=== PATIENT | female | born 1995 | race Caucasian/White ===

== ENCOUNTER 2024-11-19 10:01 | Outpatient (AMB) | payer BC, SELFPAY ==
--- NOTE | 2024-11-19 10:12 | AMB.OBINITIA ---
Vital Signs 11/19/24 10:22 Height 1.55 m Height Method Stated Weight 63.957 kg Weight Measurement Method Standing Scale BMI 26.6 BP 120/71 Blood Pressure Source Automatic Cuff Blood Pressure Location Right Upper Arm Position Sitting Respiration 16 Pulse 98 Pulse Source Monitor Temp 97.7 F Temp Source Oral Pulse Oximetry (%) 98 Oxygen Delivery Method Room Air Allergies/Home Meds Allergies & Medications Allergies No Known Allergies Allergy (Verified 11/19/24 10:12) Medication Reconciliation No Known Home Medications 11/19/24 [History Confirmed 11/19/24] Intake Visit Data Collection New Patient or Established: New Patient (never been to [facility]) Reason for Visit:: INITIAL CARE Seen by Clinical Staff ONLY (RN/MA): No Strategy Analyst Required: No Do You Feel Safe at Home: Yes Authorities Contacted: N/A PCP or OBGYN visit in last 3 months: Yes Hx Now: Yes Are you currently on any form of Control: No Last menstrual period: 09/10/24 Pain Present Currently: No Pain Scale Used: Carrion-Martin/Numerical Pain scale:: 0 Smoking Status Smoking Status: Never smoker Questionnaires Covid-19 Vaccine Questionnaire Has patient been vacinated for Covid-19 Have you been vacinated for Covid-19: Yes PHQ-9 PHQ-2 Over the last 2 weeks, how often have you been bothered by any of the following problems? 1. Little interest or pleasure in doing things: not at all 2. Feeling down, depressed, or hopeless: not at all Total score: 0 PHQ-9 3. Trouble falling or staying asleep, or sleeping too much: Not at all 4. Feeling tired or having little energy: Not at all 5. Poor appetite or overeating: Not at all 6. Feeling bad about yourself - or that you are a failure or have let yourself or your family down: Not at all 7. Trouble concentrating on things, such as reading the newspaper or watching television: Not at all 8. Moving or speaking so slowly that other people could have noticed? - Or the opposite - being so fidgety or restless that you have been moving around a lot more than usual: not at all 9. Thoughts that you would be better off or of hurting yourself in some way: Not at all Total score: 0 Source: Developed by Drs. Rosalino Kolb, Tosha Reyes, Alfredo Melo and colleagues, with an educational matthew from [employer] 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 Her last menstrual period was 09/10/2024 giving her a due date around OB Ultrasound Indication Indication: Size ,dates ,viability OB Ultrasound Ultrasound technique: transvaginal Gestational sac assessment: Presence, location, size, shape: Live IUP crown-rump length 3.15 cm corresponding to 10 weeks 0 days and an EDC of 06/19/2025. 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 She states she does have a problem with iron deficiency anemia. She is a vegetarian. OB Initial Visit Menstrual History Menstrual reliability: definite Flow: heavy Menstrual regularity: regular Monthly: Yes Age at menarche: 16 On control pills at conception: No Associated symptoms (LMP): Reports nausea, vomiting, fatigue and breast tenderness OB History : 1 Infection History & Risk Evaluation History of STDs: none Genetic Screening & History Genetic Screening/Teratology Counseling - Includes patient, baby's father, or anyone in either family with: 1. Patient's age 35 years or older as of estimated date of delivery: No 2. Thalassemia (Samoan, Botswanan, Mediterranean, or Background); MCV less than 80: No 3. Neural Tube Defect (Meningomyelocele, Spina Bifida, or Anencephaly): No 4. Congenital Heart Defect: No 5. Down Syndrome: No 6. Karlos-Sachs (Ashkenazi Baptism, Cajun, Korean [place]): No 7. Lisa Disease (Ashkenazi Baptism): No 8. Familial Dysautonomia (Ashkenazi Baptism): No 9. Sickle Cell Disease or Trait (): No 10. Hemophilia or other blood disorders: No 11. Muscular Dystrophy: No 12. Cystic Fibrosis: No 13. Baltazar's Chorea: No 14. Mental Retardation/Autism: No 15. Other inherited genetic or chromosomal disorder: No 16. Maternal Metabolic Disorder (EG,TYPE 1 Diabetes, PKU): No 17. Patient or baby's father had a child with defects not listed above: No 18. Recurrent loss or a stillbirth: No 19. Medications (including supplements, vitamins, herbs or otc drugs)/illicit/recreational drugs/alcohol since last menstrual period: No 20. Any other: No Infection History 1. Live with someone with TB or exposed to TB: No 2. Rash or viral illness since last menstrual period: No 3. Hepatitis B,C: No Other (see comments) Source: [employer] Review of Systems Review of Systems Narrative Review of Systems: Patient reports nausea some vomiting and breast tenderness. She reports fatigue. She does not want to take any medication for her nausea. Constitutional Constitutional: Reports fatigue Gastrointestinal Gastrointestinal: Reports nausea and Reports vomiting Endocrine Endocrine: Reports fatigue Exam General General Appearance: alert, in no apparent distress, comfortable, cooperative, healthy appearing and well groomed ENT ENT exam: Present other (Multiple piercings of nose and lip) Neck Neck exam: Present normal inspection, full ROM and trachea midline Chest Chest inspection: Present normal inspection and symmetric chest wall rise Resp Respiratory exam: Present normal lung sounds bilaterally Card Cardiovascular exam: Present regular rate, normal rhythm and normal heart sounds Abdominal Abdominal exam: Present soft and normal bowel sounds External exam: Present normal external exam Speculum exam: Present normal speculum exam Bimanual exam: Present normal bimanual exam and uterine enlargement (9 to 10 weeks size. Narrow pelvic outlet.) Extremities Extremities exam: Present normal inspection and full ROM Psych Psychiatric exam: Present normal affect and normal mood Skin Skin exam: Present warm, dry, intact and normal color Office Procedures OB Clinic LOC & Office Proc's Nursing/Assessment Patient Status: Initial/New Patient OB Clinic Nursing Assessment: Medication Reconciliation, Update PMH in EMR and Vital Signs OB Clinic Coordination of Care: Complex Care and Chronic Disease 1-5, Consent,records obtained, informed consent, Education Simp Pt/Fam, Lab and Imaging orders, Results/Orders obtained and Staff clarify orders Special Needs: Heart tones Miscellaneous Interventions: Pelvic/Pap Smear Set up New Patient Charge New Patient Point Assignment: 1154 New Patient Point Charge: IRONWORKER APPRENTICE SHOP Level 4 ([id number]) In Clinic Procedures Pap Smear: Yes Bedside Ultrasounds US Transvaginal at bedside: Yes Assessment & Plan Diagnosis / Problem List (1) : Status: Acute Qualifiers: Weeks of gestation: 10 weeks Qualified Code(s): Z3A.10 - 10 weeks gestation of Assessment and Plan: labs done and reviewed O+ /antibody screen negative/ rubella immune /RPR nonreactive /hepatitis B surface antigen negative/ hep C negative /HIV negative Patient desires NIPT. Urine culture not performed. Need GC chlamydia trichomoniasis as not performed. POWERHOUSE ATTENDANT: Papsmear Pap Smear Procedure [place]arone in room during procedure?: No Pre-op diagnosis general: Annual wellness exam Post-op diagnosis procedure note: Same Procedure Notes:: Pap with high risk HPV performed Papsmear completed: yes
[2024-11-19 10:22] VITALS: BP 120/71; PULSE 98; RESP 16; TEMP 36.5; O2SAT 98; BMI 26.6
== END 2024-11-19 10:54 | disposition home or self-care (01) ==
LOC: HODSOBC 10:01
PROVIDERS: PCP Family Medicine; Referring Provider Family Medicine; Supervising Provider Obstetrics & Gynecology; Visit Provider Obstetrics & Gynecology
DX: Z34.01 Encounter for supervision of normal first pregnancy, first trimester (principal); Z3A.10 10 weeks gestation of pregnancy
CPT/HCPCS: 76817; 99204; Q0091; G0463

== ENCOUNTER 2024-12-19 12:58 | Outpatient (AMB) | payer BC, SELFPAY ==
[2024-12-19 13:09] VITALS: BP 124/74; PULSE 69; RESP 17; TEMP 36.8; O2SAT 98; BMI 26.9
--- NOTE | 2024-12-19 13:09 | AMB.OBVISIT ---
Vital Signs 12/19/24 13:09 Height 1.55 m Height Method Measured Weight 64.58 kg Weight Measurement Method Standing Scale BMI 26.9 BP 124/74 Blood Pressure Source Automatic Cuff Blood Pressure Location Right Upper Arm Position Sitting Respiration 17 Pulse 69 Pulse Source Monitor Temp 98.2 F Temp Source Temporal Artery Scan Pulse Oximetry (%) 98 Oxygen Delivery Method Room Air Allergies/Home Meds Allergies & Medications Allergies No Known Allergies Allergy (Verified 12/19/24 13:10) Medication Reconciliation mv-mn no.97-folic 180 mcg-dha 25 mg-herb no.293 25 mg chewable tablet (Alive Daily Support ) tab PO 12/19/24 [History Confirmed 12/19/24] Intake Visit Data Collection New Patient or Established: Established Patient (seen at [facility] within 3 years) Reason for Visit:: OBC Seen by Clinical Staff ONLY (RN/MA): No Atomic Process Engineer Required: No Do You Feel Safe at Home: Yes Authorities Contacted: N/A PCP or OBGYN visit in last 3 months: Yes Hx Now: Yes Are you currently on any form of Control: No Last menstrual period: 11/19/24 Pain Present Currently: No Pain Scale Used: Carrion-Martin/Numerical Pain scale:: 0 Smoking Status Smoking Status: Never smoker Questionnaires Covid-19 Vaccine Questionnaire Has patient been vacinated for Covid-19 Have you been vacinated for Covid-19: Yes PHQ-9 PHQ-2 Over the last 2 weeks, how often have you been bothered by any of the following problems? 1. Little interest or pleasure in doing things: not at all 2. Feeling down, depressed, or hopeless: not at all Total score: 0 PHQ-9 3. Trouble falling or staying asleep, or sleeping too much: Not at all 4. Feeling tired or having little energy: Not at all 5. Poor appetite or overeating: Not at all 6. Feeling bad about yourself - or that you are a failure or have let yourself or your family down: Not at all 7. Trouble concentrating on things, such as reading the newspaper or watching television: Not at all 8. Moving or speaking so slowly that other people could have noticed? - Or the opposite - being so fidgety or restless that you have been moving around a lot more than usual: not at all 9. Thoughts that you would be better off or of hurting yourself in some way: Not at all Total score: 0 If you checked off any problems, how difficult have these problems made it for you to do your work, take care of things at home, or get along with other people?: not difficult at all Source: Developed by Drs. Rosalino Kolb, Tosha Reyes, Alfredo Mleo and colleagues, with an educational matthew from [employer]. 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
== END 2024-12-19 14:03 | disposition home or self-care (01) ==
LOC: HODSOBC 12:58
PROVIDERS: Supervising Provider Obstetrics & Gynecology; Visit Provider Obstetrics & Gynecology
DX: Z34.92 Encounter for supervision of normal pregnancy, unspecified, second trimester (principal); Z3A.14 14 weeks gestation of pregnancy
CPT/HCPCS: 99213; G0463

== ENCOUNTER 2025-01-21 13:04 | Outpatient (AMB) | payer BC, SELFPAY ==
--- NOTE | 2025-01-21 13:05 | OBCLNT_ITS ---
Vital Signs 01/21/25 13:08 Height 1.55 m Height Method Stated Weight 68.152 kg Weight Measurement Method Standing Scale BMI 28.3 BP 119/77 Blood Pressure Source Automatic Cuff Blood Pressure Location Left Upper Arm Position Sitting Respiration 16 Pulse 77 Pulse Source Monitor Temp 98.2 F Temp Source Oral Pulse Oximetry (%) 98 Oxygen Delivery Method Room Air Allergies/Home Meds Allergies & Medications Allergies No Known Allergies Allergy (Verified 01/21/25 13:09) Medication Reconciliation mv-mn no.97-folic 180 mcg-dha 25 mg-herb no.293 25 mg chewable tablet (Alive Daily Support ) tab PO 12/19/24 [History Confirmed 01/21/25] Intake Visit Data Collection New Patient or Established: Established Patient (seen at [facility] within 3 years) Reason for Visit:: CARE Seen by Clinical Staff ONLY (RN/MA): No Hide Or Skin Buffer Required: No Do You Feel Safe at Home: Yes Authorities Contacted: N/A PCP or OBGYN visit in last 3 months: Yes Hx Now: Yes Are you currently on any form of Control: No Pain Present Currently: No Pain Scale Used: Carrion-Martin/Numerical Smoking Status Smoking Status: Never smoker Questionnaires Covid-19 Vaccine Questionnaire Has patient been vacinated for Covid-19 Have you been vacinated for Covid-19: Yes PHQ-9 PHQ-2 Over the last 2 weeks, how often have you been bothered by any of the following problems? 1. Little interest or pleasure in doing things: not at all 2. Feeling down, depressed, or hopeless: not at all Total score: 0 PHQ-9 3. Trouble falling or staying asleep, or sleeping too much: Not at all 4. Feeling tired or having little energy: Not at all 5. Poor appetite or overeating: Not at all 6. Feeling bad about yourself - or that you are a failure or have let yourself or your family down: Not at all 7. Trouble concentrating on things, such as reading the newspaper or watching television: Not at all 8. Moving or speaking so slowly that other people could have noticed? - Or the opposite - being so fidgety or restless that you have been moving around a lot more than usual: not at all 9. Thoughts that you would be better off or of hurting yourself in some way: Not at all Total score: 0 Source: Developed by Drs. Rosalino Kolb, Tosha Reyes, Alfredo Melo and colleagues, with an educational matthew from [employer]. 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 Labs reviewed 01/21/25 -?-?-?-?-?-?-?-?-?-?-?-?- 19w 0d 68.152 kg 119/77 19 127 active Starting to feel flutters. No VB or LOF Asking about wha t I could write as far as restrictions go at work. 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/11/23 EDC 06/17/25 PNC labs: O+/Ab -/RI/RPR NR/ HIV-/HepBSag-/Hep C-/HgBA1C 4.8/ HgB 12.9/Hct 38.2 Pap WNL Need urine GC/Chlam Need SS from [facility] [place] Office Procedures OB Clinic LOC & Office Proc's Nursing/Assessment Patient Status: Established Patient OB Clinic Nursing Assessment: Medication Reconciliation, Update PMH in EMR and Vital Signs OB Clinic Coordination of Care: Complex Care and Chronic Disease 1-5, Consent,records obtained, informed consent, Education Simp Pt/Fam, 1 Ins Authorization, Lab and Imaging orders, Results/Orders obtained and Staff clarify orders Special Needs: Heart tones Established Patient Charge Established Patient Point Assignment: 150 Established Patient Point Charge: EP Level 4 (120-155)
[2025-01-21 13:08] VITALS: BP 119/77; PULSE 77; RESP 16; TEMP 36.8; O2SAT 98; BMI 28.3
== END 2025-01-21 13:43 | disposition home or self-care (01) ==
LOC: HODSOBC 13:04
PROVIDERS: PCP Obstetrics & Gynecology; Referring Provider Obstetrics & Gynecology; Supervising Provider Obstetrics & Gynecology; Visit Provider Obstetrics & Gynecology
DX: Z34.02 Encounter for supervision of normal first pregnancy, second trimester (principal); Z3A.19 19 weeks gestation of pregnancy
CPT/HCPCS: 99214; G0463

== ENCOUNTER 2025-02-24 11:39 | Outpatient (AMB) | payer BC, SELFPAY ==
--- NOTE | 2025-02-24 11:51 | OBCLNT_ITS ---
Vital Signs 02/24/25 11:52 Height 1.55 m Height Method Stated Weight 70.42 kg Weight Measurement Method Standing Scale BMI 29.2 BP 121/76 Blood Pressure Source Automatic Cuff Blood Pressure Location Left Upper Arm Position Sitting Respiration 16 Pulse 97 Pulse Source Monitor Temp 97.2 F Temp Source Oral Pulse Oximetry (%) 98 Oxygen Delivery Method Room Air Allergies/Home Meds Allergies & Medications Allergies No Known Allergies Allergy (Verified 02/24/25 11:52) Medication Reconciliation mv-mn no.97-folic 180 mcg-dha 25 mg-herb no.293 25 mg chewable tablet (Alive Daily Support ) tab PO 12/19/24 [History Confirmed 02/24/25] Intake Visit Data Collection New Patient or Established: Established Patient (seen at [facility] within 3 years) Reason for Visit:: OBC Seen by Clinical Staff ONLY (RN/MA): No Legal Service Specialist Required: No Do You Feel Safe at Home: Yes Authorities Contacted: N/A PCP or OBGYN visit in last 3 months: Yes Date of Last PCP or OBGYN visit: 01/21/25 Hx Now: Yes Are you currently on any form of Control: No Pain Present Currently: No Pain Scale Used: Carrion-Martin/Numerical Pain scale:: 0 Smoking Status Smoking Status: Never smoker Questionnaires Covid-19 Vaccine Questionnaire Has patient been vacinated for Covid-19 Have you been vacinated for Covid-19: Yes PHQ-9 PHQ-2 Over the last 2 weeks, how often have you been bothered by any of the following problems? 1. Little interest or pleasure in doing things: not at all 2. Feeling down, depressed, or hopeless: not at all Total score: 0 PHQ-9 3. Trouble falling or staying asleep, or sleeping too much: Not at all 4. Feeling tired or having little energy: Not at all 5. Poor appetite or overeating: Not at all 6. Feeling bad about yourself - or that you are a failure or have let yourself or your family down: Not at all 7. Trouble concentrating on things, such as reading the newspaper or watching television: Not at all 8. Moving or speaking so slowly that other people could have noticed? - Or the opposite - being so fidgety or restless that you have been moving around a lot more than usual: not at all 9. Thoughts that you would be better off or of hurting yourself in some way: Not at all Total score: 0 If you checked off any problems, how difficult have these problems made it for you to do your work, take care of things at home, or get along with other people?: not difficult at all Source: Developed by Drs. Rosalino Kolb, Tosha Reyes, Alfredo Melo and colleagues, with an educational matthew from [employer]. 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 Labs reviewed 01/21/25 -?-?-?-?-?-?-?-?-?-?-?-?- 19w 0d 68.152 kg 119/77 19 127 active Starting to feel flutters. No VB or LOF Asking about wha t I could write as far as restrictions go at work. 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 02/24/25 -?-?-?-?-?-?-?-?-?-?-?-?- 23w 6d 70.42 kg 121/76 26 136 active +FM. No UCs o r VB Had SS at [facility]. No report available yet. 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 09/11/23 EDC 06/17/25 PNC labs: O+/Ab -/RI/RPR NR/ HIV-/HepBSag-/Hep C-/HgBA1C 4.8/ HgB 12.9/Hct 38.2 Pap WNL Need urine GC/Chlam Need SS from [facility] [place] Notes Visit Date: 02/24/25 Last Updated by: Becky Mike (OB Clinic), MD [facility] Reviewed 23 5/7 weeks 606 gm Normal anatomy marginal cord insertion EDC 06/12/25 done Office Procedures OB Clinic LOC & Office Proc's Nursing/Assessment Patient Status: Established Patient OB Clinic Nursing Assessment: Medication Reconciliation, Update PMH in EMR and Vital Signs OB Clinic Coordination of Care: Education Complex Pt/Fam, Consent,records obtained, informed consent and Staff clarify orders Special Needs: Heart tones Established Patient Charge Established Patient Point Assignment: 95 Established Patient Point Charge: EP Level 3 (80-115) Assessment & Plan Diagnosis / Problem List (1) : Status: Acute Qualifiers: Weeks of gestation: 23 weeks Qualified Code(s): Z3A.23 - 23 weeks gestation of
[2025-02-24 11:52] VITALS: BP 121/76; PULSE 97; RESP 16; TEMP 36.2; O2SAT 98; BMI 29.2
== END 2025-02-24 12:07 | disposition home or self-care (01) ==
LOC: HODSOBC 11:39
PROVIDERS: Supervising Provider Obstetrics & Gynecology; Visit Provider Obstetrics & Gynecology
DX: Z34.92 Encounter for supervision of normal pregnancy, unspecified, second trimester (principal); Z3A.23 23 weeks gestation of pregnancy
CPT/HCPCS: 99213; G0463

== ENCOUNTER 2025-04-01 10:32 | Outpatient (AMB) | payer BC, SELFPAY ==
[2025-04-01 10:40] VITALS: BP 113/73; PULSE 77; RESP 16; TEMP 36.6; O2SAT 97; BMI 30.4
--- NOTE | 2025-04-01 10:40 | OBCLNT_ITS ---
Vital Signs 04/01/25 10:40 Height 1.55 m Height Method Stated Weight 73.198 kg Weight Measurement Method Standing Scale BMI 30.4 BP 113/73 Blood Pressure Source Automatic Cuff Blood Pressure Location Left Upper Arm Position Sitting Respiration 16 Pulse 77 Pulse Source Monitor Temp 97.8 F Temp Source Oral Pulse Oximetry (%) 97 Oxygen Delivery Method Room Air Allergies/Home Meds Allergies & Medications Allergies No Known Allergies Allergy (Verified 04/01/25 10:45) Medication Reconciliation mv-mn no.97-folic 180 mcg-dha 25 mg-herb no.293 25 mg chewable tablet (Alive Daily Support ) tab PO 12/19/24 [History Confirmed 04/01/25] Intake Visit Data Collection New Patient or Established: Established Patient (seen at [facility] within 3 years) Reason for Visit:: CARE Seen by Clinical Staff ONLY (RN/MA): No 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 1. Little interest or pleasure in doing things: not at all 2. Feeling down, depressed, or hopeless: not at all Total score: 0 PHQ-9 3. Trouble falling or staying asleep, or sleeping too much: Not at all 4. Feeling tired or having little energy: Not at all 5. Poor appetite or overeating: Not at all 6. Feeling bad about yourself - or that you are a failure or have let yourself or your family down: Not at all 7. Trouble concentrating on things, such as reading the newspaper or watching television: Not at all 8. Moving or speaking so slowly that other people could have noticed? - Or the opposite - being so fidgety or restless that you have been moving around a lot more than usual: not at all 9. Thoughts that you would be better off or of hurting yourself in some w ay: Not at all Source: Developed by Drs. Rosalino Kolb, Tosha Reyes, Alfredo Melo and colleagues, with an educational matthew from [employer]. 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 Her is in IT Tobacco History Smoking Status: Never smoker Second Hand Smoke Exposure: No Alcohol History Alcohol Intake: Never Domestic Abuse History Do You Feel Safe at Home: Yes Care OB Visit Log OB Flowsheet Initial Weight: Not Recorded Date -?-?-?-?-?-?-?-?-?-?-?-?- EGA Weight BP Alb Glu CTX Pres Fundal ht FHR Mov Dilation Station Effacement Hx Notes Visit Note 12/19/24 -?-?-?-?-?-?-?-?-?-?-?-?- 14w 2d 64.58 kg 124/74 14 143 No FM or VB. Labs reviewed 01/21/25 -?-?-?-?-?-?-?-?-?-?-?-?- 19w 0d 68.152 kg 119/77 19 127 active Starting to feel flutters. No VB or LOF Asking about wha t I could write as far as restrictions go at work. 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 02/24/25 -?-?-?-?-?-?-?-?-?-?-?-?- 23w 6d 70.42 kg 121/76 26 136 active +FM. No UCs o r VB Had SS at [facility]. No report available yet. Signed a release Had SS at [facility] 04/01/25 -?-?-?-?-?-?-?-?-?-?-?-?- 29w 0d 73.198 kg 113/73 29 156 active +FM No UCs N o VB + Back pain, leg numbness GCT ordered RAMBO Calculator Estimated Delivery Date Method Current WG Current Estimate 06/17/25 Ultrasound #1 29w 0d Other Estimates 06/17/25 LMP (Certain) 29w 0d Expected Delivery Route/Plan 29 y/o G1Po Anticipate Specific Issue/Plans 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[employer] LMP 09/11/23 EDC 06/17/25 PN labs: O+/Ab -/RI/RPR NR/ HIV-/HepBSag-/Hep C-/HgBA1C 4.8/ HgB 12.9/Hct 38.2 Pap WNL Need urine GC/Chlam Need SS from [facility] [place] Notes Visit Date: 04/01/25 Last Updated by: Becky Mike ([facility])MD Note For light duty given Visit Date: 02/24/25 Last Updated by: Becky Mike ([facility])MD SS [facility] Reviewed 23 5/ weeks 606 gm Normal anatomy marginal cord insertion EDC 06/12/25 done Office Procedures OBC Clinic LOC & Office Proc's Nursing/Assessment Patient Status: Established Patient OB Clinic Nursing Assessment: Medication Reconciliation, Update PMH in EMR and Vital Signs OB Clinic Coordination of Care: Complex Care and Chronic Disease 1-5, Consent,records obtained, informed consent, Education Simp Pt/Fam, Lab and Imaging orders, Results/Orders obtained and Staff clarify orders Special Needs: Heart tones Established Patient Charge Established Patient Point Assignment: 135 Established Patient Point Charge: EP Level 4 (120-155) Assessment & Plan Diagnosis / Problem List (1) : Status: Acute Qualifiers: Weeks of gestation: 29 weeks Qualified Code(s): Z3A.29 - 29 weeks gestation of
== END 2025-04-01 11:36 | disposition home or self-care (01) ==
LOC: HODSOBC 10:32
PROVIDERS: Supervising Provider Obstetrics & Gynecology; Visit Provider Obstetrics & Gynecology
DX: O09.893 Supervision of other high risk pregnancies, third trimester (principal); O99.891 Other specified diseases and conditions complicating pregnancy; M54.9 Dorsalgia, unspecified; R20.0 Anesthesia of skin; Z3A.29 29 weeks gestation of pregnancy
CPT/HCPCS: 99214; G0463

== ENCOUNTER 2025-04-24 10:36 | Outpatient (AMB) | payer BC, SELFPAY ==
[2025-04-24 10:40] VITALS: BP 118/74; PULSE 86; RESP 16; TEMP 36.4; O2SAT 98; BMI 31.4
--- NOTE | 2025-04-24 10:40 | AMB.OBVISIT ---
Vital Signs 04/24/25 10:40 Height 1.55 m Height Method Stated Weight 75.466 kg Weight Measurement Method Standing Scale BMI 31.4 BP 118/74 Blood Pressure Source Automatic Cuff Blood Pressure Location Left Upper Arm Position Sitting Respiration 16 Pulse 86 Pulse Source Monitor Temp 97.5 F Temp Source Oral Pulse Oximetry (%) 98 Oxygen Delivery Method Room Air Allergies/Home Meds Allergies & Medications Allergies No Known Allergies Allergy (Verified 04/24/25 10:47) Medication Reconciliation mv-mn no.97-folic 180 mcg-dha 25 mg-herb no.293 25 mg chewable tablet (Alive Daily Support ) tab PO 12/19/24 [History Confirmed 04/24/25] Intake Visit Data Collection New Patient or Established: Established Patient (seen at [facility] within 3 years) Reason for Visit:: CARE Seen by Clinical Staff ONLY (RN/MA): No Stock Associate Required: No Do You Feel Safe at Home: Yes Authorities Contacted: N/A PCP or OBGYN visit in last 3 months: Yes Hx Now: Yes Are you currently on any form of Control: No Pain Present Currently: No Pain Scale Used: Carrion-Martin/Numerical Smoking Status Smoking Status: Never smoker Immunizations Flu Vaccine in the Last 12 Months: Yes Flu Vaccine Exclusion Criteria: Already Received Questionnaires Covid-19 Vaccine Questionnaire Has patient been vacinated for Covid-19 Have you been vacinated for Covid-19: Yes PHQ-9 PHQ-2 Over the last 2 weeks, how often have you been bothered by any of the following problems? 1. Little interest or pleasure in doing things: not at all 2. Feeling down, depressed, or hopeless: not at all Total score: 0 PHQ-9 3. Trouble falling or staying asleep, or sleeping too much: Not at all 4. Feeling tired or having little energy: Not at all 5. Poor appetite or overeating: Not at all 6. Feeling bad about yourself - or that you are a failure or have let yourself or your family down: Not at all 7. Trouble concentrating on things, such as reading the newspaper or watching television: Not at all 8. Moving or speaking so slowly that other people could have noticed? - Or the opposite - being so fidgety or restless that you have been moving around a lot more than usual: not at all 9. Thoughts that you would be better off or of hurting yourself in some way: Not at all Total score: 0 Source: Developed by Drs. Rosalino Kolb, Tosha Reyes, Alfredo Melo and colleagues, with an educational matthew from [employer]. 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 Labs reviewed 01/21/25 <del>?</del> 19w 0d 68.152 kg 119/77 19 127 active Starting to feel flutters. No VB or LOF Asking about what I could write as far as restrictions go at work. 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 02/24/25 <del>?</del> 23w 6d 70.42 kg 121/76 26 136 active +FM. No UCs or VB Had SS at [facility]. No report available yet. Signed a release Had SS at [facility] 04/01/25 <del>?</del> 29w 0d 73.198 kg 113/73 29 156 active +FM No UCs No VB + Back pain, leg numbness GCT ordered 04/24/25 <del>?</del> 32w 2d 75.466 kg 118/74 32 145 active Anembryonic : - Ultrasound performed on 04-23-2025 demonstrates an intrauterine sac measuring 1.8 centimeters corresponding to 6 weeks and 5 days gestation with no pole, no cardiac activity, and no yolk sac identified. - The appears to have stopped developing 2-3 weeks prior. 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 - The etiology is generally chromosomal in nature. Plan: - Dilation and curettage (D&C) procedure as patient's preferred management option. - Submit stat request for D&C approval today. - Anticipate approval notification by Sunday with procedure scheduling for Sunday or Sunday. - Collect tissue during procedure for chromosomal analysis to provide potential genetic information. - Patient instructed to present to emergency department if bleeding or other concerning symptoms develop. - Office staff will contact patient once procedure approval is obtained to schedule date. - Restart iron supplements for borderline anemia (hemoglobin 11.3, hematocrit 33.1) - Take iron with vitamin C to improve absorption; avoid milk products or tea with iron - Consider gummy iron supplements for better absorption - Recheck hemoglobin around 37 weeks; if not above 12, consider IV iron - Break up meals into smaller portions for heartburn management - Avoid nipple stimulation before 37 weeks - After 37 weeks, nipple stimulation encouraged and can start collecting with collection kit - Follow-up in 2 weeks, then weekly after 36 weeks - Membrane sweeping at 39 weeks to encourage natural labor - Induction scheduled at 41 weeks and 1-2 days if spontaneous labor does not occur RAMBO Calculator Estimated Delivery Date Method Current WG Current Estimate 06/17/25 Ultrasound #1 32w 2d Other Estimates 06/17/25 LMP (Certain) 32w 2d Expected Delivery Route/Plan 29 y/o G1Po Anticipate Specific Issue/Plans 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[employer] 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 09/11/23 EDC 06/17/25 PNC labs: O+/Ab -/RI/RPR NR/ HIV-/HepBSag-/Hep C-/HgBA1C 4.8/ HgB 12.9/Hct 38.2 Pap WNL Need urine GC/Chlam Need [facility] from [facility] [place] Notes Visit Date: 04/24/25 Last Updated by: Braden Douglas MD Laboratory, Imaging, and Diagnostic Test Results - records (dates not specified): - Blood group: O-positive - Antibodies: K-negative - Rubella: immune - Alpha: nonreactive - HIV: negative - Hepatitis B: negative - Hepatitis C: negative - Hemoglobin A1c: 4.8 - Hemoglobin: 12.9 g/dL - Hematocrit: 38.2 - Date: 04/01/2025 - Hemoglobin: 11.3 g/dL (borderline anemic) - Hematocrit: 33.1 - One-hour glucose: 124 (negative for diabetes) - RPR: negative Visit Date: 04/01/25 Last Updated by: Becky Mike ([facility])MD Note For light duty given Visit Date: 02/24/25 Last Updated by: Becky Mike ([facility])MD [facility] Reviewed 23 10/29 weeks 606 gm Normal anatomy marginal cord insertion EDC 06/12/25 done Office Procedures OBC Clinic LOC & Office Proc's Nursing/Assessment Patient Status: Established Patient OB Clinic Nursing Assessment: Medication Reconciliation, Update PMH in EMR and Vital Signs OB Clinic Coordination of Care: Complex Care and Chronic Disease 1-5, Consent,records obtained, informed consent, Education Simp Pt/Fam, 1 Ins Authorization, Lab and Imaging orders, Results/Orders obtained and Staff clarify orders Special Needs: Heart tones Established Patient Charge Established Patient Point Assignment: 150 Established Patient Point Charge: EP Level 4 (120-155) Assessment & Plan Diagnosis / Problem List (1) 32 weeks gestation of : Status: Acute Plan Problem List - at 32 weeks and 2 days gestation - Iron deficiency anemia - Pulsatile tinnitus - Heartburn Assessment 32-week and 2-day 1 para 0 with borderline anemia (hemoglobin 11.3, hematocrit 33.1) requiring iron supplementation restart. Patient reports new onset pulsating sensation in left ear without associated cold symptoms, congestion, or allergies. heart rate is normal at 127 bpm. Patient experiences heartburn symptoms consistent with gestational changes. One-hour glucose screening negative at 124, RPR negative, and other routine laboratory values within normal limits. Plan - Restart iron supplements for borderline anemia (hemoglobin 11.3, hematocrit 33.1) - Take iron with vitamin C to improve absorption; avoid milk products or tea with iron - Consider gummy iron supplements for better absorption - Recheck hemoglobin around 37 weeks; if not above 12, consider IV iron - Break up meals into smaller portions for heartburn management - Avoid nipple stimulation before 37 weeks - After 37 weeks, nipple stimulation encouraged and can start collecting with collection kit - Follow-up in 2 weeks, then weekly after 36 weeks - Membrane sweeping at 39 weeks to encourage natural labor - Induction scheduled at 41 weeks and 1-2 days if spontaneous labor does not occur 1. Progress Reviewed gestational age (32 weeks 2 days), growth, and heart rate (127 bpm, normal). Planned frequent visits (every 2 weeks until 36 weeks, then weekly). 2. Instructed patient to monitor movements and report decreases immediately. 3. Testing Counseled on routine third-trimester labs per guidelines (syphilis screening completed with negative RPR). Discussed potential need for ultrasound or monitoring based on risk factors. 4. Preeclampsia Precaution Educated on preeclampsia signs: severe headache, vision changes, right upper quadrant pain, sudden swelling. Advised urgent reporting of symptoms and discussed blood pressure monitoring if high risk. 5. Labor Precautions Reviewed labor signs: regular contractions, pelvic pressure, back pain, bleeding, or fluid leakage. Instructed to seek immediate care for these symptoms. 6. Lifestyle and Delivery Preparation Reinforced vitamins, nutrition (restart iron supplements, take with vitamin C, avoid milk/tea with iron), and safe activity. Discussed plan, pain management, and (nipple stimulation after 37 weeks, breast milk collection). Advised on labor preparation (hospital bag) and expectations. 7. Psychosocial Support Assessed emotional well-being and offered resources for mental health or parenting support.
== END 2025-04-24 12:00 | disposition home or self-care (01) ==
PROVIDERS: Supervising Provider Obstetrics & Gynecology; Visit Provider Obstetrics & Gynecology
DX: O09.893 Supervision of other high risk pregnancies, third trimester (principal); O99.013 Anemia complicating pregnancy, third trimester; D50.9 Iron deficiency anemia, unspecified; O99.891 Other specified diseases and conditions complicating pregnancy; R12 Heartburn; H93.A9 Pulsatile tinnitus, unspecified ear; Z3A.32 32 weeks gestation of pregnancy
CPT/HCPCS: 99214; G0463

== ENCOUNTER 2025-05-08 14:32 | Outpatient (AMB) | payer BC, SELFPAY ==
[2025-05-08 14:37] VITALS: BP 125/78; PULSE 76; RESP 14; TEMP 36.6; O2SAT 98; BMI 31.4
--- NOTE | 2025-05-08 14:37 | AMB.OBVISIT ---
Vital Signs 05/08/25 14:37 Height 1.55 m Height Method Stated Weight 75.353 kg Weight Measurement Method Standing Scale BMI 31.4 BP 125/78 Blood Pressure Source Automatic Cuff Blood Pressure Location Left Upper Arm Position Sitting Respiration 14 Pulse 76 Pulse Source Monitor Temp 97.8 F Temp Source Oral Pulse Oximetry (%) 98 Oxygen Delivery Method Room Air Allergies/Home Meds Allergies & Medications Allergies No Known Allergies Allergy (Verified 05/08/25 14:38) Medication Reconciliation mv-mn no.97-folic 180 mcg-dha 25 mg-herb no.293 25 mg chewable tablet (Alive Daily Support ) tab PO 12/19/24 [History Confirmed 05/08/25] Intake Visit Data Collection New Patient or Established: Established Patient (seen at [facility] within 3 years) Reason for Visit:: CARE/ PATIENT REQUESTING TDAP Seen by Clinical Staff ONLY (RN/MA): No 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 Required: No Do You Feel Safe at Home: Yes Authorities Contacted: N/A PCP or OBGYN visit in last 3 months: Yes Hx Now: Yes Are you currently on any form of Control: No Pain Present Currently: No Pain Scale Used: Carrion-Martin/Numerical Pain scale:: 0 Smoking Status Smoking Status: Never smoker Immunizations Flu Vaccine in the Last 12 Months: Yes Flu Vaccine Exclusion Criteria: Already Received Questionnaires Covid-19 Vaccine Questionnaire Has patient been vacinated for Covid-19 Have you been vacinated for Covid-19: Yes PHQ-9 PHQ-2 Over the last 2 weeks, how often have you been bothered by any of the following problems? 1. Little interest or pleasure in doing things: not at all 2. Feeling down, depressed, or hopeless: not at all Total score: 0 PHQ-9 3. Trouble falling or staying asleep, or sleeping too much: Not at all 4. Feeling tired or having little energy: Not at all 5. Poor appetite or overeating: Not at all 6. Feeling bad about yourself - or that you are a failure or have let yourself or your family down: Not at all 7. Trouble concentrating on things, such as reading the newspaper or watching television: Not at all 8. Moving or speaking so slowly that other people could have noticed? - Or the opposite - being so fidgety or restless that you have been moving around a lot more than usual: not at all 9. Thoughts that you would be better off or of hurting yourself in some way: Not at all Total score: 0 Source: Developed by Drs. Rosalino Kolb, Tosha Reyes, Alfredo Melo and colleagues, with an educational matthew from N-1-1. 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 Labs reviewed 01/21/25 <del>?</del> 19w 0d 68.152 kg 119/77 19 127 active Starting to feel flutters. No VB or LOF Asking about what I could write as far as restrictions go at work. 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 02/24/25 <del>?</del> 23w 6d 70.42 kg 121/76 26 136 active +FM. No UCs or VB Had SS at [facility]. No report available yet. Signed a release Had SS at [facility] 04/01/25 <del>?</del> 29w 0d 73.198 kg 113/73 29 156 active +FM No UCs No VB + Back pain, leg numbness GCT ordered 04/24/25 <del>?</del> 32w 2d 75.466 kg 118/74 32 145 active Anembryonic : - Ultrasound performed on 04-23-2025 demonstrates an intrauterine sac measuring 1.8 centimeters corresponding to 6 weeks and 5 days gestation with no pole, no cardiac activity, and no yolk sac identified. - The appears to have stopped developing 2-3 weeks prior. 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 - The etiology is generally chromosomal in nature. Plan: - Dilation and curettage (D&C) procedure as patient's preferred management option. - Submit stat request for D&C approval today. - Anticipate approval notification by Sunday with procedure scheduling for Sunday or Sunday. - Collect tissue during procedure for chromosomal analysis to provide potential genetic information. - Patient instructed to present to emergency department if bleeding or other concerning symptoms develop. - Office staff will contact patient once procedure approval is obtained to schedule date. - Restart iron supplements for borderline anemia (hemoglobin 11.3, hematocrit 33.1) - Take iron with vitamin C to improve absorption; avoid milk products or tea with iron - Consider gummy iron supplements for better absorption - Recheck hemoglobin around 37 weeks; if not above 12, consider IV iron - Break up meals into smaller portions for heartburn management - Avoid nipple stimulation before 37 weeks - After 37 weeks, nipple stimulation encouraged and can start collecting with collection kit - Follow-up in 2 weeks, then weekly after 36 weeks - Membrane sweeping at 39 weeks to encourage natural labor - Induction scheduled at 41 weeks and 1-2 days if spontaneous labor does not occur 05/08/25 <del>?</del> 34w 2d 75.353 kg 125/78 absent cephalic 34 155 active - She reports experiencing occasional tightening of her abdomen that she believes may be contractions, but notes these are not constant or frequent. - She acknowledges uncertainty about recognizing contractions as this is her first . - She denies regular contractions or other concerning symptoms. - She has already received her flu shot and is scheduled to receive Tdap vaccination today. - She attempted to obtain RSV vaccination at her clinic and [facility] but was told she could not get it. 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[employer] [employer] LMP 09/11/23 EDC 06/17/25 [facility] labs: O+/Ab -/RI/RPR NR/ HIV-/HepBSag-/Hep C-/HgBA1C 4.8/ HgB 12.9/Hct 38.2 Pap WNL Need urine GC/Chlam Need [facility] from [facility] [place] Notes Visit Date: 04/24/25 Last Updated by: Braden Douglas MD Laboratory, Imaging, and Diagnostic Test Results - records (dates not specified): - Blood group: O-positive - Antibodies: K-negative - Rubella: immune - Alpha: nonreactive - HIV: negative - Hepatitis B: negative - Hepatitis C: negative - Hemoglobin A1c: 4.8 - Hemoglobin: 12.9 g/dL - Hematocrit: 38.2 - Date: 04/01/2025 - Hemoglobin: 11.3 g/dL (borderline anemic) - Hematocrit: 33.1 - One-hour glucose: 124 (negative for diabetes) - RPR: negative Visit Date: 04/01/25 Last Updated by: Becky Mike (OB Clinic)MD Note For light duty given Visit Date: 02/24/25 Last Updated by: Becky Mike (OB Clinic)MD [facility] Reviewed 23 5/7 weeks 606 gm Normal anatomy marginal cord insertion EDC 06/12/25 done Office Procedures OBC Clinic LOC & Office Proc's Nursing/Assessment Patient Status: Established Patient OB Clinic Nursing Assessment: Medication Reconciliation, Update PMH in EMR and Vital Signs OB Clinic Coordination of Care: Complex Care and Chronic Disease 1-5, Consent,records obtained, informed consent, Education Simp Pt/Fam, 1 Ins Authorization, Lab and Imaging orders, Results/Orders obtained and Staff clarify orders Special Needs: Heart tones Established Patient Charge Established Patient Point Assignment: 150 Established Patient Point Charge: EP Level 4 (120-155) Injection/Vaccine Admin SQ Im Injection: Yes Immunizations diphth,pertus(acell),tetanus 2.5 Lf unit-8 mcg-5 Lf/0.5mL IM syringe Performing Provider: Braden Douglas MD Performing Location: [facility] Administered by: Rochelle Sanchez MA on 05/08/25 14:42 Dose Route Admin Location Dispensed Lot Number Expiration Date Package [facility] [employer] 0.5 mL IM Left Deltoid 0.5 mL [id number] 12/05/27 29879-733-52 [id number] [employer] VIS Given Date VIS Provided VIS Publication Date 05/08/25 Single Vaccine 24 Eligibility Eligibility Date Funding Source Public Non-[facility] Assessment & Plan Diagnosis / Problem List (1) 34 weeks gestation of : Status: Acute Plan Problem List - at 34 weeks and 2 days gestation - [place] contractions Assessment 34-week 2-day intrauterine with normal heart rate of 127-130 bpm. Patient reports occasional uterine tightening consistent with [place] contractions, occurring infrequently and not in a regular pattern. Normal physiologic changes noted with uterine positioning as progresses to 34-35 weeks with forward tipping of uterus out of true pelvis. Patient is primigravida and uncertain about distinguishing true contractions from [place] contractions. Plan - Administer Tdap vaccination today - Group B strep culture to be performed at next appointment (at 36+ weeks) - Follow up in 2 weeks - RSV vaccination recommended between 32-37 weeks (can obtain at pharmacy) - Return to hospital if concerning symptoms develop per previously discussed precautions 1. Progress Reviewed gestational age (34 weeks 2 days), growth, and heart rate (127-130 bpm, normal). Planned frequent visits (every 2 weeks until 36 weeks, then weekly). 2. Instructed patient to monitor movements and report decreases immediately. 3. Testing Counseled on routine third-trimester labs per guidelines (Group B strep culture planned for next visit at 36+ weeks). Discussed potential need for ultrasound or monitoring based on risk factors. 4. Preeclampsia Precaution Educated on preeclampsia signs: severe headache, vision changes, right upper quadrant pain, sudden swelling. Advised urgent reporting of symptoms and discussed blood pressure monitoring if high risk. 5. Labor Precautions Reviewed labor signs: regular contractions (every 5 minutes or closer), pelvic pressure, back pain, bleeding, or fluid leakage. Explained [place] contractions as normal preparation for labor. Contractions should not be more frequent than every 5 minutes and should not last beyond 30-40 minutes. Instructed to seek immediate care for these symptoms. 6. Lifestyle and Delivery Preparation Reinforced vitamins, nutrition, and safe activity. Discussed plan, pain management, and . Advised on labor preparation (e.g., hospital bag) and expectations. 7. Psychosocial Support Assessed emotional well-being and offered resources for mental health or parenting support.
== END 2025-05-08 14:46 | disposition home or self-care (01) ==
LOC: HODSOBC 14:32
PROVIDERS: Supervising Provider Obstetrics & Gynecology; Visit Provider Obstetrics & Gynecology
DX: O09.893 Supervision of other high risk pregnancies, third trimester (principal); O47.03 False labor before 37 completed weeks of gestation, third trimester; Z3A.34 34 weeks gestation of pregnancy; Z23 Encounter for immunization
CPT/HCPCS: 90471; 90715; 96372; 99214; G0463

== ENCOUNTER 2025-05-20 11:33 | Outpatient (AMB) | payer BC, SELFPAY ==
[2025-05-20 11:42] VITALS: BP 102/78; PULSE 85; RESP 18; TEMP 36.2; O2SAT 98; BMI 31.5
--- NOTE | 2025-05-20 11:42 | OBCLNT_ITS ---
Vital Signs 05/20/25 11:42 Height 1.55 m Height Method Stated Weight 75.807 kg Weight Measurement Method Standing Scale BMI 31.5 BP 102/78 Blood Pressure Source Automatic Cuff Blood Pressure Location Left Upper Arm Position Sitting Respiration 18 Pulse 85 Pulse Source Monitor Temp 97.2 F Temp Source Oral Pulse Oximetry (%) 98 Oxygen Delivery Method Room Air Allergies/Home Meds Allergies & Medications Allergies No Known Allergies Allergy (Verified 05/20/25 11:47) Medication Reconciliation mv-mn no.97-folic 180 mcg-dha 25 mg-herb no.293 25 mg chewable tablet (Alive Daily Support ) tab PO 12/19/24 [History Confirmed 05/20/25] Immunizations Immunizations Flu Vaccine in the Last 12 Months: No Flu Vaccine Exclusion Criteria: No Exclusion Criteria Care OB Visit Log OB Flowsheet Initial Weight: Not Recorded Date -?-?-?-?-?-?-?-?-?-?-?-?- EGA Weight BP Alb Glu CTX Pres Fundal ht FHR Mov Dilation Station Effacement Hx Notes Visit Note 12/19/24 -?-?-?-?-?-?-?-?-?-?-?-?- 14w 2d 64.58 kg 124/74 14 143 No FM or VB. Labs reviewed 01/21/25 -?--?-?-?-?-?-?-?-?-?-?-?- 19w 0d 68.152 kg 119/77 19 127 active Starting to feel flutters. No VB or LOF Asking about wha t I could write as far as restrictions go at work. 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 02/24/25 -?-?-?-?-?-?-?-?-?-?-?-?- 23w 6d 70.42 kg 121/76 26 136 active +FM. No UCs o r VB Had SS at [facility]. No report available yet. Signed a release Had SS at [facility] 04/01/25 -?-?-?-?-?-?-?-?-?-?-?-?- 29w 0d 73.198 kg 113/73 29 156 active +FM No UCs N o VB + Back pain, leg numbness GCT ordered 04/24/25 -?-?-?-?-?-?-?-?-?-?-?-?- 32w 2d 75.466 kg 118/74 32 145 active Anembryonic : - Ultrasound performed on 04-23-2025 dem onstrates an intrauterine sac measuring 1.8 centimeters corresponding to 6 weeks and 5 days gestation with no pole, no cardiac activity, and no yolk sac identified. - The appears to have stopped developing 2-3 weeks prior. - Patient reports no bleeding, which dif fers from her previous miscarriages where bleeding occurred before diagnosis. - The etiology is generally chromosomal in nature. Plan: - Dilation and curettage (D&C) procedure as patient's preferred management option. - Submit stat request for D&C approval t apolonia. - Anticipate approval notification by Mo javi with procedure scheduling for Sunday or Sunday. - Collect tissue during procedure for ch romosomal analysis to provide potential genetic information. - Patient instructed to present to emerg ency department if bleeding or other concerning symptoms develop. - Office staff will contact patient once procedure approval is obtained to schedule date. - Restart iron s upplements for borderline anemia (hemoglobin 11.3, hematocrit 33.1) - Take iron with vitamin C to improve ab sorption; avoid milk products or tea with iron - Consider gummy iron supplements for be tter absorption - Recheck hemoglobin around 37 weeks; if not above 12, consider IV iron - Break up meals into smaller portions f or heartburn management - Avoid nipple stimulation before 37 wee ks - After 37 weeks, nipple stimulation enc ouraged and can start collecting with collection kit - Follow-up in 2 weeks, then weekly afte r 36 weeks - Membrane sweeping at 39 weeks to encou rage natural labor - Induction scheduled at 41 weeks and 1- 2 days if spontaneous labor does not occur 05/08/25 -?-?-?-?-?-?-?-?-?-?-?-?- 34w 2d 75.353 kg 125/78 absent cephalic 34 155 active - She reports experiencing occasional tightening of her abdomen that she believes may be contractions, but notes these are not constant or frequent. - She acknowledges uncertainty about r ecognizing contractions as this is her first . - She denies regular contractions or oth er concerning symptoms. - She has already received her flu shot and is scheduled to receive Tdap vaccination today. - She attempted to obtain RSV vaccinatio n at her clinic and [facility] but was told she could not get it. - Administ er Tdap vaccination today - Group B strep culture to be performed at next appointment (at 36+ weeks) - Follow up in 2 weeks - RSV vaccination recommended between 32 -37 weeks (can obtain at pharmacy) - Return to hospital if concerning sympt oms develop per previously discussed precautions 05/20/25 -?-?-?-?-?-?-?-?-?-?-?-?- 36w 0d 75.807 kg 102/78 absent cephalic 36 145 active - She reports feeling good overall with no current concerns. - She denies contractions, leaking, or b leeding. - She reports good movement. - She is currently working but has day off, working tomorrow, Sunday, and Sunday. - Group B Strep culture performed today at 36 weeks - Return visit scheduled for next week ( 37 weeks) - At 39 weeks, cervical exam and membran e sweeping will be performed - Weight measurement to be obtained at n ext visit for weight estimation - Weekly visits to continue, with possib le transition to every 2 weeks for one visit then back to weekly - Patient to be sent to labor and delive after next office visit - Unemployment and family bonding forms to be completed by Sunday RAMBO Calculator Estimated Delivery Date Method Current WG Current Estimate 06/17/25 Ultrasound #1 36w 2d Other Estimates 06/17/25 LMP (Certain) 36w 2d Expected Delivery Route/Plan 29 y/o G1Po Anticipate Specific Issue/Plans 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/23 EDC 06/17/25 [facility] labs: O+/Ab -/RI/RPR NR/ HIV-/HepBSag-/Hep C-/HgBA1C 4.8/ HgB 12.9/Hct 38.2 Pap WNL Need urine GC/Chlam Need SS from [facility] [place] Notes Visit Date: 04/24/25 Last Updated by: Braden Douglas MD Laboratory, Imaging, and Diagnostic Test Results - records (dates not specified): - Blood group: O-positive - Antibodies: K-negative - Rubella: immune - Alpha: nonreactive - HIV: negative - Hepatitis B: negative - Hepatitis C: negative - Hemoglobin A1c: 4.8 - Hemoglobin: 12.9 g/dL - Hematocrit: 38.2 - Date: 04/01/2025 - Hemoglobin: 11.3 g/dL (borderline anemic) - Hematocrit: 33.1 - One-hour glucose: 124 (negative for diabetes) - RPR: negative Visit Date: 04/01/25 Last Updated by: Becky Mike (OB Clinic)MD Note For light duty given Visit Date: 02/24/25 Last Updated by: Becky Mike (OB Clinic)MD [facility] Reviewed 23 10/29 weeks 606 gm Normal anatomy marginal cord insertion EDC 06/12/25 done Office Procedures OBC Clinic LOC & Office Proc's Nursing/Assessment Patient Status: Established Patient OB Clinic Nursing Assessment: Medication Reconciliation, Update PMH in EMR and Vital Signs OB Clinic Coordination of Care: Consent,records obtained, informed consent, Ed ucation Simp Pt/Fam, Lab and Imaging orders, Results/Orders obtained and Staff clarify orders Special Needs: Heart tones Established Patient Charge Established Patient Point Assignment: 110 Established Patient Point Charge: EP Level 3 (80-115) Assessment & Plan Diagnosis / Problem List (1) Supervision of high risk , unspecified, third trimester: Status: Acute Plan Problem List - at 36 weeks gestation Assessment 36-week patient () with estimated due date of 06/17, presenting for routine visit. heart rate documented at 158 bpm. Patient reports no contractions, no leaking, no bleeding, and good movement. Group B Strep culture was performed during this visit. Previous genetic testing showed technical failure due to insufficient DNA yield despite adequate sample quality (>10% yield). Plan - Group B Strep culture performed today at 36 weeks - Return visit scheduled for next week (37 weeks) - At 39 weeks, cervical exam and membrane sweeping will be performed - Weight measurement to be obtained at next visit for weight estimation - Weekly visits to continue, with possible transition to every 2 weeks for one visit then back to weekly - Patient to be sent to labor and delivery after next office visit - Unemployment and family bonding forms to be completed by Sunday. Progress Reviewed gestational age (36 weeks 0 days), growth, and heart rate (158 bpm). Planned frequent visits (weekly from current gestational age). 2. Instructed patient to monitor movements and report decreases immediately. 3. Testing Group B Strep culture performed at 36 weeks per guidelines. Discussed potential need for ultrasound or monitoring based on risk factors. 4. Preeclampsia Precaution Educated on preeclampsia signs: severe headache, vision changes, right upper quadrant pain, sudden swelling. Advised urgent reporting of symptoms and discussed blood pressure monitoring if high risk. 5. Labor Precautions Reviewed labor signs: regular contractions, pelvic pressure, back pain, bleeding, or fluid leakage. Instructed to seek immediate care for these symptoms. 6. Lifestyle and Delivery Preparation Reinforced vitamins, nutrition, and safe activity. Discussed membrane sweeping at 39 weeks to help initiate labor naturally and expectations. 7. Psychosocial Support Assessed emotional well-being and offered resources for mental health or parenting support.
== END 2025-05-20 11:53 | disposition home or self-care (01) ==
LOC: HODSOBC 11:33
PROVIDERS: Supervising Provider Obstetrics & Gynecology; Visit Provider Obstetrics & Gynecology
DX: O09.93 Supervision of high risk pregnancy, unspecified, third trimester (principal); Z3A.36 36 weeks gestation of pregnancy; Z36.85 Encounter for antenatal screening for Streptococcus B
CPT/HCPCS: 99213; G0463

== ENCOUNTER 2025-06-05 09:34 | Outpatient (AMB) | payer BC, SELFPAY ==
[2025-06-05 09:40] VITALS: BP 138/84; PULSE 61; RESP 18; TEMP 36.4; O2SAT 98; BMI 32.0
--- NOTE | 2025-06-05 09:40 | AMB.OBPNC ---
Vital Signs 06/05/25 09:40 Height 1.55 m Height Method Stated Weight 76.884 kg Weight Measurement Method Standing Scale BMI 32.0 BP 138/84 H Blood Pressure Source Automatic Cuff Blood Pressure Location Left Upper Arm Position Sitting Respiration 18 Pulse 61 Pulse Source Monitor Temp 97.6 F Temp Source Temporal Artery Scan Pulse Oximetry (%) 98 Oxygen Delivery Method Room Air Allergies/Home Meds Allergies & Medications Allergies No Known Allergies Allergy (Verified 06/05/25 11:17) Medication Reconciliation mv-mn no.97-folic 180 mcg-dha 25 mg-herb no.293 25 mg chewable tablet (Alive Daily Support ) 1 tab PO QDAY 12/19/24 [History Confirmed 06/05/25] ferrous sulfate 325 mg (65 mg iron) tablet (Feosol) 325 mg PO QDAY 06/05/25 [History Confirmed 06/05/25] vit T54-AK-wynsvggwfj-BM no.15 500 mcg-400 mcg-10 mg-400 mg capsule 1 cap PO QDAY 06/05/25 [History Confirmed 06/05/25] Immunizations Immunizations Flu Vaccine in the Last 12 Months: No Flu Vaccine Exclusion Criteria: No Exclusion Criteria Care OB Visit Log OB Flowsheet Initial Weight: Not Recorded Date <del>?</del> EGA Weight BP Alb Glu CTX Pres Fundal ht FHR Mov Dilation Station Effacement Hx Notes Visit Note 12/19/24 <del>?</del> 14w 2d 64.58 kg 124/74 14 143 No FM or VB. Labs reviewed 01/21/25 <del>?</del> 19w 0d 68.152 kg 119/77 19 127 active Starting to feel flutters. No VB or LOF Asking about what I could write as far as restrictions go at work. 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 02/24/25 <del>?</del> 23w 6d 70.42 kg 121/76 26 136 active +FM. No UCs or VB Had SS at [facility]. No report available yet. Signed a release Had SS at [facility] 04/01/25 <del>?</del> 29w 0d 73.198 kg 113/73 29 156 active +FM No UCs No VB + Back pain, leg numbness GCT ordered 04/24/25 <del>?</del> 32w 2d 75.466 kg 118/74 32 145 active Anembryonic : - Ultrasound performed on 04-23-2025 demonstrates an intrauterine sac measuring 1.8 centimeters corresponding to 6 weeks and 5 days gestation with no pole, no cardiac activity, and no yolk sac identified. - The appears to have stopped developing 2-3 weeks prior. 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 - The etiology is generally chromosomal in nature. Plan: - Dilation and curettage (D&C) procedure as patient's preferred management option. - Submit stat request for D&C approval today. - Anticipate approval notification by Sunday with procedure scheduling for Sunday or Sunday. - Collect tissue during procedure for chromosomal analysis to provide potential genetic information. - Patient instructed to present to emergency department if bleeding or other concerning symptoms develop. - Office staff will contact patient once procedure approval is obtained to schedule date. - Restart iron supplements for borderline anemia (hemoglobin 11.3, hematocrit 33.1) - Take iron with vitamin C to improve absorption; avoid milk products or tea with iron - Consider gummy iron supplements for better absorption - Recheck hemoglobin around 37 weeks; if not above 12, consider IV iron - Break up meals into smaller portions for heartburn management - Avoid nipple stimulation before 37 weeks - After 37 weeks, nipple stimulation encouraged and can start collecting with collection kit - Follow-up in 2 weeks, then weekly after 36 weeks - Membrane sweeping at 39 weeks to encourage natural labor - Induction scheduled at 41 weeks and 1-2 days if spontaneous labor does not occur 05/08/25 <del>?</del> 34w 2d 75.353 kg 125/78 absent cephalic 34 155 active - She reports experiencing occasional tightening of her abdomen that she believes may be contractions, but notes these are not constant or frequent. - She acknowledges uncertainty about recognizing contractions as this is her first . - She denies regular contractions or other concerning symptoms. - She has already received her flu shot and is scheduled to receive Tdap vaccination today. - She attempted to obtain [facility] vaccination at her clinic and [facility] but was told she could not get it. - Administer Tdap vaccination today - Group B strep culture to be performed at next appointment (at 36+ weeks) - Follow up in 2 weeks - RSV vaccination recommended between 32-37 weeks (can obtain at pharmacy) - Return to hospital if concerning symptoms develop per previously discussed precautions 05/20/25 <del>?</del> 36w 0d 75.807 kg 102/78 absent cephalic 36 145 active - She reports feeling good overall with no current concerns. - She denies contractions, leaking, or bleeding. - She reports good movement. - She is currently working but has Sunday off, working tomorrow, Sunday, and Sunday. - Group B Strep culture performed today at 36 weeks - Return visit scheduled for next week (37 weeks) - At 39 weeks, cervical exam and membrane sweeping will be performed - Weight measurement to be obtained at next visit for weight estimation - Weekly visits to continue, with possible transition to every 2 weeks for one visit then back to weekly - Patient to be sent to labor and delivery after next office visit - Unemployment and family bonding forms to be completed by Sunday06/05/25 <del>?</del> 38w 2d 76.884 kg 138/84 absent cephalic 39 146 active - She reports intermittent contractions that are off and on. - Contractions do not last more than 20-30 minutes. - Contractions resolve when she lies down and switches positions. - Denies persistent contractions. - She reports new-onset elevated blood pressures as noted by staff. - Send patient to hospital for NST and complete OB evaluation due to heart rate deceleration observed in office (dropped from 145 to 100 bpm then recovered) - Obtain PIH panel due to new-onset elevated blood pressures - Repeat GBS culture (previous specimen was inadequate/spoiled) - Perform membrane sweep - Monitor blood pressure multiple times during hospital visit - Follow up in one week RAMBO Calculator Estimated Delivery Date Method Current WG Current Estimate 06/17/25 Ultrasound #1 38w 2d Other Estimates 06/17/25 LMP (Certain) 38w 2d Expected Delivery Route/Plan 29 y/o G1Po Anticipate Specific Issue/Plans 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/23 EDC 06/17/25 PNC labs: O+/Ab -/RI/RPR NR/ HIV-/HepBSag-/Hep C-/HgBA1C 4.8/ HgB 12.9/Hct 38.2 Pap WNL Need urine GC/Chlam Need SS from [facility] [place] Notes Visit Date: 04/24/25 Last Updated by: Braden Douglas MD Laboratory, Imaging, and Diagnostic Test Results - records (dates not specified): - Blood group: O-positive - Antibodies: K-negative - Rubella: immune - Alpha: nonreactive - HIV: negative - Hepatitis B: negative - Hepatitis C: negative - Hemoglobin A1c: 4.8 - Hemoglobin: 12.9 g/dL - Hematocrit: 38.2 - Date: 04/01/2025 - Hemoglobin: 11.3 g/dL (borderline anemic) - Hematocrit: 33.1 - One-hour glucose: 124 (negative for diabetes) - RPR: negative Visit Date: 04/01/25 Last Updated by: Becky Mike (OB Clinic)MD Note For light duty given Visit Date: 02/24/25 Last Updated by: Becky Mike (OB Clinic)MD [facility] Reviewed 23 5/7 weeks 606 gm Normal anatomy marginal cord insertion EDC 06/12/25 done Office Procedures OBC Clinic LOC & Office Proc's Nursing/Assessment Patient Status: Established Patient OB Clinic Nursing Assessment: Medication Reconciliation, Update PMH in EMR and Vital Signs OB Clinic Coordination of Care: Complex Care and Chronic Disease 1-5, Education Complex Pt/Fam, Consent,records obtained, informed consent, Lab and Imaging orders, Results/Orders obtained and Staff clarify orders Special Needs: Heart tones Established Patient Charge Established Patient Point Assignment: 140 Established Patient Point Charge: EP Level 4 (120-155) Assessment & Plan Diagnosis / Problem List (1) Supervision of high risk , unspecified, third trimester: Status: Acute Plan Problem List - Elevated blood pressure in - heart rate abnormality Assessment 40-year-old at 38 weeks 2 days gestation presenting with new-onset elevated blood pressures and heart rate deceleration noted during office visit (heart rate dropped from 145 to 100 bpm then recovered). Patient reports intermittent contractions lasting 20-30 minutes that resolve with position changes. Recent laboratory results show hemoglobin of 12.0 (non-anemic). GBS culture requires repeat testing due to inadequate specimen from previous collection. Plan - Send patient to hospital for NST and complete OB evaluation due to heart rate deceleration observed in office (dropped from 145 to 100 bpm then recovered) - Obtain PIH panel due to new-onset elevated blood pressures - Repeat GBS culture (previous specimen was inadequate/spoiled) - Perform membrane sweep - Monitor blood pressure multiple times during hospital visit - Follow up in one week 1. Progress Reviewed gestational age (38 weeks 2 days), growth, and heart rate (146 bpm normal, with concerning deceleration to 100 bpm noted during examination). Planned frequent visits (weekly at this gestational age). 2. Instructed patient to monitor movements and report decreases immediately. 3. Testing Counseled on routine third-trimester labs per guidelines. Hemoglobin 12.0 (non-anemic). GBS culture needs to be repeated due to inadequate specimen. Discussed potential need for ultrasound or monitoring based on risk factors. NST and complete OB ultrasound ordered due to heart rate deceleration. 4. Preeclampsia Precaution Educated on preeclampsia signs: severe headache, vision changes, right upper quadrant pain, sudden swelling. Advised urgent reporting of symptoms and discussed blood pressure monitoring. New-onset elevated blood pressures noted, PIH panel ordered. 5. Labor Precautions Reviewed labor signs: regular contractions, pelvic pressure, back pain, bleeding, or fluid leakage. Patient reports intermittent contractions lasting 20-30 minutes that resolve with position changes. Instructed to seek immediate care for persistent or worsening symptoms. 6. Lifestyle and Delivery Preparation Reinforced vitamins, nutrition, and safe activity. Discussed plan, pain management, and . Advised on labor preparation (keep hospital bag ready and partner available for transport) and expectations. Membrane sweep performed. 7. Psychosocial Support Assessed emotional well-being and offered resources for mental health or parenting support.
== END 2025-06-05 10:01 | disposition home or self-care (01) ==
LOC: HODSOBC 09:34
PROVIDERS: Supervising Provider Obstetrics & Gynecology; Visit Provider Obstetrics & Gynecology
DX: O09.893 Supervision of other high risk pregnancies, third trimester (principal); O36.8330 Maternal care for abnormalities of the fetal heart rate or rhythm, third trimester, not applicable or unspecified; O99.891 Other specified diseases and conditions complicating pregnancy; R03.0 Elevated blood-pressure reading, without diagnosis of hypertension; Z3A.38 38 weeks gestation of pregnancy; Z36.85 Encounter for antenatal screening for Streptococcus B
CPT/HCPCS: 99214; G0463

== ENCOUNTER 2025-06-05 10:28 | Observation (INO) | payer BC, SELFPAY ==
[2025-06-05] VITALS (8 sets, daily range): BP systolic 103–127; BP diastolic 55–76; PULSE 60–77; RESP 16–99; TEMP 36.5; BMI 32.0
--- NOTE | 2025-06-05 10:25 | XR_ITS ---
Examination: Complete OB ultrasound greater than 14 weeks Date and time of exam: 06/05/2025 at 11:14 a.m. CLINICAL HISTORY: Patient had hypertension and the physician's office today Findings: Viable intrauterine single fetus with single amniotic sac There is a single intrauterine fetus currently in cephalic presentation occiput posterior. The placenta is situated along the anterior wall of the uterus, placental grade is 3. heart rate is normal at 141 bpm. All of the usual anatomy which is identifiable are well seen and normal. There is a normal three-vessel umbilical cord.. Composite estimated gestational age based on BPD, head circumference, abdominal circumference, femur length is 37 weeks 1 day. Estimated weight is 3442 g the amniotic fluid volume index is 7.4 cm which is normal. Survey of intracranial anatomy, spinal anatomy, abdominal anatomy, four-chamber heart performed with no abnormalities identified. The ovaries could not be visualized due to overlying bowel Impression: 1. There is a normal viable single intrauterine fetus noted currently in cephalic position occiput posterior 2. Average gestational age is 37 weeks and 1 day, estimated weight 3442 g. 3. Estimated date of delivery is June 25, 2019.
[2025-06-05 11:17] LABS: Basophils # (Auto) 0.0 Thou/mm3 (0.0-0.2); Basophils % (Auto) 0 % (0-2.5); Eosinophils # (Auto) 0.1 Thou/mm3 (0.0-0.5); Eosinophils % (Auto) 1 % (0-10); Hematocrit 35.5 % (36.0-46.0); Hemoglobin 12.0 g/dL (12.0-16.0); Immature Granulocytes Auto 0.03 Thou/mm3 (0.00-0.00); Lymphocytes # (Auto) 2.0 Thou/mm3 (1.0-4.8); Lymphocytes % (Auto) 26 % (10-50); Mean Corpuscular HGB Conc 33.8 g/dl (31.0-37.0); Mean Corpuscular Hemoglobin 29.8 pg (25.0-35.0); Mean Corpuscular Volume 88 fL (80-100); Monocytes # (Auto) 0.7 Thou/mm3 (0.0-0.8); Monocytes % (Auto) 9 % (0-12); Neutrophils # (Auto) 4.9 Thou/mm3 (1.8-7.7); Neutrophils % (Auto) 64 % (37-80); Nucleated Red Blood Cell # 0.00 Thou/mm3 (0.00-0.00); Nucleated Red Blood Cell % 0 /100 WBC (0); Platelet Count 240 Thou/mm3 (140-440); RDW Standard Deviation 43.4 fL (36.4-46.3); Red Blood Count 4.03 Miln/mm3 (4.00-5.20); White Blood Count 7.8 Thou/mm3 (3.6-11.0)
[2025-06-05 11:30] LABS: Collection Type, Urine Clean Catch; Squamous Epithelial Cell,Urine 0 /hpf (0-5)
[2025-06-05 11:34] LABS: Fibrinogen 383 mg/dL (175-375); INR 1.0 (0.9-1.3); Partial Thromboplastin Time 25.3 Seconds (22.0-36.0); Prothrombin Time 10.2 Seconds (9.0-12.2)
[2025-06-05 11:40] LABS: Alanine Aminotransferase < 7 U/L (10-49); Albumin, Serum 3.7 gm/dL (3.5-5.0); Albumin/Globulin Ratio 1.6 (1.2-2.2); Alkaline Phosphatase 178 U/L (46-116); Anion Gap 11 (7-16); Aspartate Amino Transferase 12 U/L (0-34); BUN/Creatinine Ratio 10 Ratio (12-20); Bilirubin,Total 0.4 mg/dL (0.3-1.2); Blood Urea Nitrogen < 5 mg/dL (9-23); Calcium 9.4 mg/dL (8.3-10.6); Calcium (Corrected) 9.6 mg/dL (8.5-10.1); Carbon Dioxide 20.6 mMol/L (20.0-31.0); Chloride 109 mMol/L (98-107); Creatinine (Component) 0.5 mg/dL (0.6-1.3); Estimated Creatinine Clearance 157.2 mL/min (>60); Globulin 2.3 gm/dL (2.3-3.5); Glucose 79 mg/dL (74-106); LDH (Lactate Dehydrogenase) 160 U/L (120-246); Osmolality,Calculated 277 (275-295); Potassium 3.4 mMol/L (3.4-5.1); Sodium 141 mMol/L (136-145); Total Protein 6.0 gm/dL (5.7-8.2); Uric Acid 4.0 mg/dL (3.1-7.8); eGFR > 60 See Note
[2025-06-05 11:51] LABS: Bacteria,Urine 3+; Bilirubin,Urine Negative (Negative); Blood,Urine Trace (Negative); Clarity,Urine Clear (Clear/Hazy); Color,Urine Colorless (Lt Yel-Yel); Glucose, Urine Negative (Negative); Ketones,Urine Negative (Negative); Leukocyte Esterase,Urine Positive (Negative); Nitrite,Urine Negative (Negative); PH,Urine 7.5 (5.0-7.0); Protein,Urine Negative (Neg - Trace); RBC,Urine 4 /hpf (0-3); Specific Gravity,Urine 1.005 (1.001-1.035); Urobilinogen,Urine Negative mg/dL (0.0-1.0); WBC,Urine 22 /hpf (0-5)
[2025-06-05 13:08] LABS: Creatinine,Random Urine 26 mg/dL (30-125); Protein Total, Random Urine 9 mg/dL (1-14)
== END 2025-06-05 12:51 | disposition home or self-care (01) ==
PROVIDERS: Admitting Provider Obstetrics & Gynecology; Visit Provider Obstetrics & Gynecology
DX: O36.8330 Maternal care for abnormalities of the fetal heart rate or rhythm, third trimester, not applicable or unspecified (principal); Z3A.37 37 weeks gestation of pregnancy
CPT/HCPCS: 36415; 59025; 59899; 76805; 80053; 81001; 82570; 83615; 84156; 84550; 85025; 85384; 85610; 85730

== ENCOUNTER 2025-06-10 08:37 | Outpatient (AMB) | payer BC, SELFPAY ==
[2025-06-10 08:50] VITALS: BP 160/98; PULSE 73; RESP 14; TEMP 36.5; O2SAT 98; BMI 32.3
--- NOTE | 2025-06-10 08:50 | OBCLNT_ITS ---
Vital Signs 06/10/25 08:50 Height 1.55 m Height Method Stated Weight 77.791 kg Weight Measurement Method Standing Scale BMI 32.3 BP 160/98 H Blood Pressure Source Automatic Cuff Blood Pressure Location Left Upper Arm Position Sitting Respiration 14 Pulse 73 Pulse Source Monitor Temp 97.7 F Temp Source Oral Pulse Oximetry (%) 98 Oxygen Delivery Method Room Air Allergies/Home Meds Allergies & Medications Allergies No Known Allergies Allergy (Verified 06/10/25 09:51) Medication Reconciliation mv-mn no.97-folic 180 mcg-dha 25 mg-herb no.293 25 mg chewable tablet (Alive Daily Support ) 1 tab PO QDAY 12/19/24 [History Confirmed 06/10/25] ferrous sulfate 325 mg (65 mg iron) tablet (Feosol) 325 mg PO QDAY 06/05/25 [History Confirmed 06/10/25] vit L13-AP-mouynzbjpc-XN no.15 500 mcg-400 mcg-10 mg-400 mg capsule 1 cap PO QDAY 06/05/25 [History Confirmed 06/10/25] docusate sodium 100 mg capsule (Stool Softener) 100 mg PO QDAY 30 days #30 caps 06/13/25 [Rx] Immunizations Immunizations Flu Vaccine in the Last 12 Months: Yes Flu Vaccine Exclusion Criteria: Already Received Care OB Visit Log OB Flowsheet Initial Weight: Not Recorded Date -?-?-?-?-?-?-?-?-?-?-?-?- EGA Weight BP Alb Glu CTX Pres Fundal ht FHR Mov Dilation Station Effacement Hx Notes Visit Note 12/19/24 -?-?-?-?-?-?-?-?-?-?-?-?- 14w 2d 64.58 kg 124/74 14 143 No FM or VB. Labs reviewed 01/21/25 -?-?-?-?-?-?-?-?-?-?-?-?- 19w 0d 68.152 kg 119/77 19 127 active Starting to feel flutters. No VB or LOF Asking about wha t I could write as far as restrictions go at work. 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 02/24/25 -?-?-?-?-?-?-?-?-?-?-?-?- 23w 6d 70.42 kg 121/76 26 136 active +FM. No UCs o r VB Had SS at [facility]. No report available yet. Signed a release Had SS at [facility] 04/01/25 -?-?-?-?-?-?-?-?-?-?-?-?- 29w 0d 73.198 kg 113/73 29 156 active +FM No UCs N o VB + Back pain, leg numbness GCT ordered 04/24/25 -?-?-?-?-?-?-?-?-?-?-?-?- 32w 2d 75.466 kg 118/74 32 145 active Anembryonic : - Ultrasound performed on 04-23-2025 dem onstrates an intrauterine sac measuring 1.8 centimeters corresponding to 6 weeks and 5 days gestation with no pole, no cardiac activity, and no yolk sac identified. - The appears to have stopped developing 2-3 weeks prior. - Patient reports no bleeding, which dif fers from her previous miscarriages where bleeding occurred before diagnosis. - The etiology is generally chromosomal in nature. Plan: - Dilation and curettage (D&C) procedure as patient's preferred management option. - Submit stat request for D&C approval t apolonia. - Anticipate approval notification by Mo nday with procedure scheduling for Sunday or Sunday. - Collect tissue during procedure for ch romosomal analysis to provide potential genetic information. - Patient instructed to present to emerg ency department if bleeding or other concerning symptoms develop. - Office staff will contact patient once procedure approval is obtained to schedule date. - Restart iron s upplements for borderline anemia (hemoglobin 11.3, hematocrit 33.1) - Take iron with vitamin C to improve ab sorption; avoid milk products or tea with iron - Consider gummy iron supplements for be tter absorption - Recheck hemoglobin around 37 weeks; if not above 12, consider IV iron - Break up meals into smaller portions f or heartburn management - Avoid nipple stimulation before 37 wee ks - After 37 weeks, nipple stimulation enc ouraged and can start collecting with collection kit - Follow-up in 2 weeks, then weekly afte r 36 weeks - Membrane sweeping at 39 weeks to encou rage natural labor - Induction scheduled at 41 weeks and 1- 2 days if spontaneous labor does not occur 05/08/25 -?-?-?-?-?-?-?-?-?-?-?-?- 34w 2d 75.353 kg 125/78 absent cephalic 34 155 active - She reports experiencing occasional tightening of her abdomen that she believes may be contractions, but notes these are not constant or frequent. - She acknowledges uncertainty about r ecognizing contractions as this is her first . - She denies regular contractions or oth er concerning symptoms. - She has already received her flu shot and is scheduled to receive Tdap vaccination today. - She attempted to obtain RSV vaccinatio n at her clinic and [facility] but was told she could not get it. - Adminis ter Tdap vaccination today - Group B strep culture to be performed at next appointment (at 36+ weeks) - Follow up in 2 weeks - RSV vaccination recommended between 32 -37 weeks (can obtain at pharmacy) - Return to hospital if concerning sympt oms develop per previously discussed pr ecautions 05/20/25 -?-?-?-?-?-?-?-?-?-?-?-?- 36w 0d 75.807 kg 102/78 absent cephalic 36 145 active - She reports feeling good overall with no current concerns. - She denies contractions, leaking, or b leeding. - She reports good movement. - She is currently working but has off, working tomorrow, Sunday, and Sunday. - Group B Strep culture performed today at 36 weeks - Return visit scheduled for next week ( 37 weeks) - At 39 weeks, cervical exam and membran e sweeping will be performed - Weight measurement to be obtained at n ext visit for weight estimation - Weekly visits to continue, with posskade le transition to every 2 weeks for one visit then back to weekly - Patient to be sent to labor and delive after next office visit - Unemployment and family bonding forms to be completed by Sunday06/05/25 -?-?-?-?-?-?-?-?-?-?-?-?- 38w 2d 76.884 kg 138/84 absent cephalic 39 146 active - She reports intermittent contractions that are off and on. - Contractions do not last more than 2 0-30 minutes. - Contractions resolve when she lies d own and switches positions. - Denies persistent contractions. - She reports new-onset elevated blood pressures as noted by staff. - Send patient to hospital for NST and complete OB evaluation due to heart rate deceleration observed in office (dropped from 145 to 100 bpm then recovered) - Obtain PIH panel due to new-onset elev ated blood pressures - Repeat GBS culture (previous specimen was inadequate/spoiled) - Perform membrane sweep - Monitor blood pressure multiple times during hospital visit - Follow up in one week 06/10/25 -?-?-?-?-?-?-?-?-?-?-?-?- 39w 0d 77.791 kg 160/98 absent cephalic 41 145 active - She has elevated blood pressure today measuring 160/90 mmHg, representing an acute change from her baseline. - Patient reports her blood pressure has historically been in the 110s to 120s range. - She notes a progressive increase in bl ood pressure readings over recent visits, with last visit showing 130s to 140s and now reaching 160 mmHg. - Patient does not meet full criteria fo r preeclampsia but has severe hypertension. - She denies having typical symptoms associated with hypertension. 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 EDC 06/17/25 PNC labs: O+/Ab -/RI/RPR NR/ HIV-/HepBSag-/Hep C-/HgBA1C 4.8/ HgB 12.9/Hct 38.2 Pap WNL Need urine GC/Chlam Need SS from [facility] in [place] Notes Visit Date: 04/24/25 Last Updated by: Braden Douglas MD Laboratory, Imaging, and Diagnostic Test Results - records (dates not specified): - Blood group: O-positive - Antibodies: K-negative - Rubella: immune - Alpha: nonreactive - HIV: negative - Hepatitis B: negative - Hepatitis C: negative - Hemoglobin A1c: 4.8 - Hemoglobin: 12.9 g/dL - Hematocrit: 38.2 - Date: 04/01/2025 - Hemoglobin: 11.3 g/dL (borderline anemic) - Hematocrit: 33.1 - One-hour glucose: 124 (negative for diabetes) - RPR: negative Visit Date: 04/01/25 Last Updated by: Becky Mike ([facility] Clinic)MD Note For light duty given Visit Date: 02/24/25 Last Updated by: Becky Mike ([facility] Clinic)MD [facility] Reviewed 23 10/29 weeks 606 gm Normal anatomy marginal cord insertion EDC 06/12/25 done Office Procedures OBC Clinic LOC & Office Proc's Nursing/Assessment Patient Status: Established Patient OB Clinic Nursing Assessment: Medication Reconciliation, Update PMH in EMR and Vital Signs OB Clinic Coordination of Care: Complex Care and Chronic Disease 1-5, Consent,records obtained, informed consent, Education Simp Pt/Fam, 1 Ins Authorization, Lab and Imaging orders, Results/Orders obtained and Staff clarify orders Special Needs: Heart tones Miscellaneous Interventions: Blood/Urine Collection and Pelvic no cultures Established Patient Charge Established Patient Point Assignment: 190 Established Patient Point Charge: EP Level 5 (160-above) Assessment & Plan Diagnosis / Problem List (1) Gestational hypertension: Status: Acute Qualifiers: Trimester: third trimester Qualified Code(s): O13.3 - Gestational [-induced] hypertension without significant proteinuria, third trimester (2) Supervision of high risk , unspecified, third trimester: Status: Acute Plan Problem List - Severe hypertension in - at 39 weeks gestation Assessment 41-year-old patient at 39 weeks 0 days gestation presenting with severe hypertension with blood pressure of 160/90, representing an acute elevation from baseline readings in the 110s-120s with progressive increase noted over recent visits (130s-140s at last visit). Patient does not meet full criteria for preeclampsia at this time but demonstrates severe gestational hypertension requiring immediate delivery. heart rate is 155 bpm. Plan - Admit patient for induction of labor due to severe hypertension (blood pressure 160/90) - Perform laboratory studies upon hospital admission - Cervical examination to be performed at hospital under sterile conditions - Patient to proceed to 4th floor for admission - Follow up appointment scheduled for June (EMV) 1. Progress Reviewed gestational age at 39 weeks and 0 days, growth, and heart rate at 155 bpm. Patient scheduled for immediate admission for induction due to severe hypertension. 2. Instructed patient to monitor movements and report decreases immediately. 3. Testing Labs will be performed upon hospital admission as part of induction protocol. 4. Preeclampsia Precaution Patient presents with severe hypertension (160/90) at 39 weeks. Does not meet full criteria for preeclampsia but requires delivery due to acute blood pressure elevation from baseline of 110s-120s. Patient educated on the need for immediate delivery to prevent progression to more severe complications. 5. Labor Precautions Not applicable - patient is at term (39 weeks). 6. Lifestyle and Delivery Preparation Patient scheduled for induction of labor at hospital. Cervical examination will be performed under sterile conditions at hospital. Patient given time (2-3 hours) to gather belongings before admission. Delivery expected tomorrow with Ron Douglas attending. 7. Psychosocial Support Patient appeared accepting of admission plan and induction process.
== END 2025-06-10 09:22 | disposition home or self-care (01) ==
PROVIDERS: Supervising Provider Obstetrics & Gynecology; Visit Provider Obstetrics & Gynecology
DX: O09.893 Supervision of other high risk pregnancies, third trimester (principal); O13.3 Gestational [pregnancy-induced] hypertension without significant proteinuria, third trimester; Z3A.39 39 weeks gestation of pregnancy
CPT/HCPCS: 99215; G0463

== ENCOUNTER 2025-06-10 09:17 | Inpatient (IN) | payer BC, SELFPAY ==
[2025-06-10] VITALS (60 sets, daily range): BP systolic 110–137; BP diastolic 57–89; PULSE 63–126; RESP 18–20; TEMP 36.9–37.1; O2SAT 98–100; BMI 32.5
--- NOTE | 2025-06-10 10:27 | XR_ITS ---
EXAMINATION: age Limited TECHNIQUE: Limited transabdominal sonographic images pelvis Date and time: June 10, 2025, 1104 hours INDICATIONS: Preop labor induction, -induced hypertension today. FINDINGS: Viable intrauterine gestation cephalic presentation. Cardiac motion 160 bpm Estimated weight 2748.6 g IMPRESSION: Viable intrauterine gestation cephalic presentation
[2025-06-10 10:28] LABS: Collection Type, Urine Clean Catch
[2025-06-10 10:29] LABS: Basophils # (Auto) 0.0 Thou/mm3 (0.0-0.2); Basophils % (Auto) 0 % (0-2.5); Eosinophils # (Auto) 0.0 Thou/mm3 (0.0-0.5); Eosinophils % (Auto) 1 % (0-10); Hematocrit 35.3 % (36.0-46.0); Hemoglobin 12.1 g/dL (12.0-16.0); Immature Granulocytes Auto 0.04 Thou/mm3 (0.00-0.00); Lymphocytes # (Auto) 2.3 Thou/mm3 (1.0-4.8); Lymphocytes % (Auto) 31 % (10-50); Mean Corpuscular HGB Conc 34.3 g/dl (31.0-37.0); Mean Corpuscular Hemoglobin 29.7 pg (25.0-35.0); Mean Corpuscular Volume 87 fL (80-100); Monocytes # (Auto) 0.7 Thou/mm3 (0.0-0.8); Monocytes % (Auto) 10 % (0-12); Neutrophils # (Auto) 4.3 Thou/mm3 (1.8-7.7); Neutrophils % (Auto) 59 % (37-80); Nucleated Red Blood Cell # 0.00 Thou/mm3 (0.00-0.00); Nucleated Red Blood Cell % 0 /100 WBC (0); Platelet Count 246 Thou/mm3 (140-440); RDW Standard Deviation 41.7 fL (36.4-46.3); Red Blood Count 4.07 Miln/mm3 (4.00-5.20); White Blood Count 7.4 Thou/mm3 (3.6-11.0)
[2025-06-10 10:40] LABS: Bacteria,Urine 4+; Bilirubin,Urine Negative (Negative); Blood,Urine Negative (Negative); Clarity,Urine Turbid (Clear/Hazy); Color,Urine Lt-Yellow (Lt Yel-Yel); Glucose, Urine Negative (Negative); Ketones,Urine Negative (Negative); Leukocyte Esterase,Urine Positive (Negative); Nitrite,Urine Negative (Negative); PH,Urine 7.0 (5.0-7.0); Protein,Urine Negative (Neg - Trace); RBC,Urine 3 /hpf (0-3); Specific Gravity,Urine 1.008 (1.001-1.035); Squamous Epithelial Cell,Urine 2 /hpf (0-5); Urobilinogen,Urine Negative mg/dL (0.0-1.0); WBC,Urine 31 /hpf (0-5)
[2025-06-10 10:41] LABS: Creatinine,Random Urine 57 mg/dL (30-125); Protein Total, Random Urine 25 mg/dL (1-14)
[2025-06-10 10:49] LABS: Fibrinogen 423 mg/dL (175-375); INR 0.9 (0.9-1.3); Partial Thromboplastin Time 26.6 Seconds (22.0-36.0); Prothrombin Time 10.1 Seconds (9.0-12.2)
[2025-06-10 11:03] LABS: Alanine Aminotransferase < 7 U/L (10-49); Albumin, Serum 3.6 gm/dL (3.5-5.0); Albumin/Globulin Ratio 1.4 (1.2-2.2); Alkaline Phosphatase 194 U/L (46-116); Anion Gap 14 (7-16); Aspartate Amino Transferase 13 U/L (0-34); BUN/Creatinine Ratio 10 Ratio (12-20); Bilirubin,Total 0.4 mg/dL (0.3-1.2); Blood Urea Nitrogen < 5 mg/dL (9-23); Calcium 8.2 mg/dL (8.3-10.6); Calcium (Corrected) 8.5 mg/dL (8.5-10.1); Carbon Dioxide 18.5 mMol/L (20.0-31.0); Chloride 108 mMol/L (98-107); Creatinine (Component) 0.5 mg/dL (0.6-1.3); Estimated Creatinine Clearance 158.6 mL/min (>60); Globulin 2.5 gm/dL (2.3-3.5); Glucose 84 mg/dL (74-106); Osmolality,Calculated 275 (275-295); Potassium 3.4 mMol/L (3.4-5.1); Sodium 140 mMol/L (136-145); Total Protein 6.1 gm/dL (5.7-8.2); Uric Acid 4.0 mg/dL (3.1-7.8); eGFR > 60 See Note
[2025-06-10 11:09] LABS: Syphilis Nonreactive (Nonreactive)
[2025-06-10] MEDS: RINGERS LACTATED 1000 ML 1,000 ML 100 ML IV (16:10)
--- NOTE | 2025-06-10 16:18 | PD.LDHP ---
Documentation for date of: 06/10/25 OB Labor/Induct. HPI History of Present Illness : 1 Term pregnancies: 0 pregnancies: 0 Living children: 0 History of Abortions: Spontaneous and Elective: 0 History of sections: No History of : No Date of last menstrual period: 09/11/23 RAMBO: 06/17/25 Gestational Age (weeks): 39 Gestational Age (days): 0 Gestational age based on last menstrual period: 89 Indication for induction: medical complication History of present illness: IOL for elevated BP/ gestational HIGH BP Labs Labs: Positive: Herpes Type 1, Negative: RPR, Hepatitis B, Rubella Titre, HIV, Chlamydia, Herpes Type 2 and Group Beta Strep and Unknown: Gonorrhea and Covid-19 Review of Systems Review of Systems Systems Reviewed: All systems reviewed, normal except as documented Past Medical History Surgical History SURGICAL: Negative Section Meds Home Medications and Allergies Home Medications ?Medication ?Instructions ?Recorded ?Confirmed ?Type mv-mn no.97-folic 180 mcg-dha 25 1 tab PO QDAY 12/19/24 06/10/25 History mg-herb no.293 25 mg chewable tablet (Alive Daily Support ) ferrous sulfate 325 mg (65 mg 325 mg PO QDAY 06/05/25 06/10/25 History iron) tablet (Feosol) vit [id number] no.15 500 1 cap PO QDAY 06/05/25 06/10/25 History mcg-400 mcg-10 mg-400 mg capsule Allergies Allergy/AdvReac Type Severity Reaction Status Date / Time No Known Allergies Allergy Verified 06/10/25 09:51 OB Exam Physical Exam Vital signs: Temp Pulse Resp BP Pulse Ox O2 Del Method 98.7 F 96 18 133/78 H 100 Room Air 06/10/25 14:15 06/10/25 15:48 06/10/25 14:15 06/10/25 15:48 06/10/25 16:13 06/10/25 14:15 Narrative: Size equal to dates uterus non tender Occasional/ contractions non tender FHR is category 1 feta presentation is vertex Patient is Finger tip, thick and high OB Results Labs 06/10/25 09:50 06/10/25 09:50 Labs: Short CBC 06/10/25 Range/Units 09:50 WBC 7.4 (3.6-11.0) Thou/mm3 Hgb 12.1 (12.0-16.0) g/dL Hct 35.3 L (36.0-46.0) % Plt Count 246 (140-440) Thou/mm3 BMP 06/10/25 09:50 Sodium 140 Potassium 3.4 Chloride 108 H Carbon Dioxide 18.5 L BUN < 5 L Creatinine 0.5 L Glucose 84 Calcium 8.2 L Liver Function 06/10/25 Range/Units 09:50 Total Bilirubin 0.4 (0.3-1.2) mg/dL AST 13 (0-34) U/L ALT < 7 L (10-49) U/L Alkaline Phosphatase 194 H (46-116) U/L Albumin 3.6 (3.5-5.0) gm/dL Urine 06/10/25 Range/Units 09:50 Urine Color Lt-Yellow (Lt Yel-Yel) Urine Clarity Turbid A (Clear/Hazy) Urine pH 7.0 (5.0-7.0) Ur Specific [place] 1.008 (1.001-1.035) Urine Protein Negative (Neg - Trace) Urine Glucose (UA) Negative (Negative) OB Assessment & Plan Assessment and Plan (1) Supervision of high risk , unspecified, third trimester: Status: Acute (2) Gestational hypertension: Status: Acute Additional Plan Induction method: per misoprostol protocol Plan: induction Additional Plan Comment: 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
[2025-06-10 17:28] LABS: Chlamydia trachomatis PCR Negative (Not Detect); Neisseria Gonorrhoeae DNA PCR Negative (Not Detect); Trichomonas Negative (Negative)
[2025-06-11] VITALS (59 sets, daily range): BP systolic 106–138; BP diastolic 57–82; PULSE 57–98; RESP 16–20; TEMP 36.4–37.1; O2SAT 96–100
--- NOTE | 2025-06-11 19:41 | PD.LDPN ---
Documentation for date of: 06/11/25 OB Labor Progress Note Pelvic Exam Dilation (cm): FT Effacement (%): Thick station: -3 Amniotic membrane status: Intact Contractions Monitor mode: External Contraction frequency: 1.5-3 Contraction pattern: Tetanic Contraction intensity: Mild Status status: Category l History of Present Illness HPI Patient evaluated at bedside. Exam as 1 thick and high Category 1 heart rate tracing Patient has Cervidil that is due to come out at 1:45 AM Continue current management plan
[2025-06-12] VITALS (290 sets, daily range): BP systolic 106–185; BP diastolic 55–93; PULSE 66–159; RESP 15–18; TEMP 36.6–37.9; O2SAT 76–100
[2025-06-12] MEDS: RINGERS LACTATED 1000 ML 1,000 ML 100 ML IV ×3 (04:00→10:40)
[2025-06-12] MEDS: OXYTOCIN in NS 30 units 30 UNIT/500 ML BAG IV (06:18)
--- NOTE | 2025-06-12 07:40 | PD.LDPN ---
Documentation for date of: 06/12/25 OB Labor Progress Note Pain Control Pain control: epidural Pelvic Exam Dilation (cm): 3 Effacement (%): 80 station: -2 Amniotic membrane status: Ruptured Comments: AROMed patient 0735. Clear fluid. IUPC placed. Adequate pelvis. EFW by Baltazar 7-1/2 pounds. Contractions Monitor mode: Internal Contraction frequency: 5-7 Contraction pattern: Coupling Contraction intensity: Mild Status status: Category l Assessment and Plan Pitocin rate (mU/min): 1 Assessment: induction ongoing Plan OB labor note: continuous present management Comments: Increase Pitocin until adequate labor History of Present Illness HPI The patient is a 30-year-old G1, P0 at 39-2/7 weeks being induced for elevated blood pressures. Patient had epidural placed approximately an hour ago. She is on 1 milliunits/min of Pitocin and leonora about every 7 minutes. She is comfortable. Her is at bedside.
--- NOTE | 2025-06-12 10:54 | ESPR_ITS ---
Documentation for date of: 06/12/25 OB Labor Progress Note Pain Control Pain control: epidural Pelvic Exam Dilation (cm): 3 Effacement (%): 80 station: -2 Amniotic membrane status: Ruptured Contractions Monitor mode: Internal Contraction frequency: 3 Contraction intensity: Strong Status status: Category l Assessment and Plan Pitocin rate (mU/min): 7 Assessment: induction ongoing Plan OB labor note: continuous present management Comments: Patient does not make a large amount of cervical international exchange coordinator the last 3 hours. Plan will be to continue Pitocin augmentation and recheck patient in 3 hours. If no change we will proceed with . History of Present Illness HPI The patient is a 30-year-old G1, P0 at 39-2/7 weeks being induced for elevated blood pressures. Patient had epidural placed approximately an hour ago. She is on 7 milliunits/min of Pitocin and leonora about every 3 minutes. She is comfortable. Her is at bedside.
[2025-06-12] MEDS: ONDANSETRON INJ 2 MG/ML INJ 2 ML 4 MG IVP (12:18)
[2025-06-12] MEDS: ACETAMINOPHEN 500 MG TABLET 1000 MG PO (16:06)
[2025-06-12] MEDS: OXYTOCIN in NS 20 units 20 UNIT/1,000 ML BAG 125 UNIT IV (18:59)
[2025-06-12] MEDS: MINERAL OIL 30 ML UDC TOP (18:59)
[2025-06-12] MEDS: LIDOCAINE HCL 1% 20 ML VIAL INFL (19:06)
[2025-06-12] MEDS: OXYTOCIN INJ 10 UNIT/ML VIAL IM (19:07)
[2025-06-12] MEDS: KETOROLAC INJ 30 MG/ML VIAL IVP (19:11)
[2025-06-12] MEDS: TRANEXAMIC ACID 1,000 MG IVPB 1,000 MG/100 ML BAG 200 MG IV (19:27)
--- NOTE | 2025-06-12 21:11 | OBDSUM_ITS ---
Data (Romero) Data Hx Section: No Maternal Blood Type: O Pos Rubella Titre: Positive RPR: Non-reactive Labs: Negative: RPR, Hepatitis B, HIV, Chlamydia, Gonorrhea and Group Beta Strep : 1 Term: 0 : 0 Livin Abortions: Spontaneous & Theraputic: 0 Delivery Data (Romero) Labor Data Initiation of labor: Induction Induction/Augmentation Agent: Cytotec-PO, Cervidil, Pitocin and Artificial ROM ROM date: 06/12/25 ROM time: 07:32 Amniotic membrane rupture type: Artificial Amniotic fluid description: Clear Delivery Data EDC: 06/17/25 EDC calculated by:: LMP/early US confirmation Date of arrival to unit: 06/10/25 Onset of labor date: 06/12/25 Onset of labor time: 15:00 Complete dilation date: 06/12/25 Complete dilation time: 17:21 Crockett delivery date: 06/12/25 Crockett delivery time: 18:58 Gestational age (weeks): 39 Gestational age (days): 2 Placenta delivery date: 06/12/25 Placenta delivery time: 19:05 Stage 1 total time: Labor - Stage 1 Duration 2 hours and 21 minutes Delivered by: [facility] ([facility]) Delivery nurse: Melva Godinez nurse: Drew Evangelista Convention Services Manager at delivery: No Support person(s) at delivery: FOB and mother Delivery Method Delivery method: Normal Vaginal Delivery Presentation: Vertex position: OA Anesthesia Type Anesthesia Type: Local and Epidural Delivery Room Medications Delivery room medications: Lidocaine (local), Pitocin 10 u IM, Pitocin 20 u IV, Cytotec 800 DC and other (TXA) Placenta Placenta delivery description: Spontaneous Cord blood sent to lab: Yes cord blood collection: Cord Blood Type Episiotomy Episiotomy description: None Lacerations #1: Perineal: 2nd degree Periurethral: Bilateral first-degree periurethral Perineal repair Sutures used for repair: 4.0 Chromic and other (2-0 chromic) EBL Estimated blood loss (ml): 300 Umbilical Cord cord description: 3 Vessels Additional Procedures The patient is a 30-year-old G1, P0 at 39 weeks admitted originally 06/10/2025 for induction of labor secondary to some elevated blood pressures in the office. Patient was admitted she had Cervidil and 4 does of PO cytotec. She was signed out to me the morning of 06/12/2025. I examined the patient approximately 7:15 in the morning and she was 3 cm dilated, an amniotomy was performed and intrauterine pressure catheter was placed. Pitocin augmentation was begun. The patient had a labor epidural placed during the day. The patient went on to progress to complete by 1721 and she began pushing shortly thereafter. She pushed approximately an hour and a half delivering a liveborn female at 1858. Findings: Liveborn female in the MARLENI presentation with a loose nuchal cord x 1 no meconium. Apgars were 8 and 9. Weight was 6 pounds 12 ounces. As the baby was vigorous at she was placed directly on mother's chest and delayed cord clamping was performed for 2 to 3 minutes. The cord was then clamped cut the infant stayed on mother's chest. The placenta was complete spontaneous grossly normal with the velamentous insertion, delivering approximately 6 minutes after the baby delivered. As patient had some brisk bleeding after delivery, she was given IM Pitocin ,followed by TXA. She had a small trickle after this and was given 800 mcg of Cytotec rectally. She did sustain a second-degree perineal laceration repaired in a standard fashion using 2-0 chromic and 4-0 chromic. Complications were none. Condition both mom and were in stable condition in the delivery room. Of note, EBL was 300 cc. Complications Complications: None Crockett Data (Romero) Data order: 1 Crockett's gender: Female Identification band number: [id number] weight (gms): 3061.748 g Weight (pounds): 6 lbs and 12.0 ozs length: 50.8 cm 1 minute: 8 5 minutes: 9
[2025-06-12] MEDS: ceFAZolin/D5W 2 GM IV 2 GM/100 ML BAG IV (21:29)
[2025-06-13 04:45] VITALS: BP 125/79; PULSE 90; RESP 18; TEMP 36.7; O2SAT 98
[2025-06-13 06:08] LABS: Basophils # (Auto) 0.0 Thou/mm3 (0.0-0.2); Basophils % (Auto) 0 % (0-2.5); Eosinophils # (Auto) 0.0 Thou/mm3 (0.0-0.5); Eosinophils % (Auto) 0 % (0-10); Hematocrit 30.2 % (36.0-46.0); Hemoglobin 10.1 g/dL (12.0-16.0); Immature Granulocytes Auto 0.07 Thou/mm3 (0.00-0.00); Lymphocytes # (Auto) 2.0 Thou/mm3 (1.0-4.8); Lymphocytes % (Auto) 12 % (10-50); Mean Corpuscular HGB Conc 33.4 g/dl (31.0-37.0); Mean Corpuscular Hemoglobin 29.8 pg (25.0-35.0); Mean Corpuscular Volume 89 fL (80-100); Monocytes # (Auto) 2.1 Thou/mm3 (0.0-0.8); Monocytes % (Auto) 12 % (0-12); Neutrophils # (Auto) 12.9 Thou/mm3 (1.8-7.7); Neutrophils % (Auto) 75 % (37-80); Nucleated Red Blood Cell # 0.00 Thou/mm3 (0.00-0.00); Nucleated Red Blood Cell % 0 /100 WBC (0); Platelet Count 212 Thou/mm3 (140-440); RDW Standard Deviation 43.5 fL (36.4-46.3); Red Blood Count 3.39 Miln/mm3 (4.00-5.20); White Blood Count 17.2 Thou/mm3 (3.6-11.0)
[2025-06-13 08:03] VITALS: BP 129/75; PULSE 82; RESP 16; TEMP 36.8; O2SAT 98
[2025-06-13] MEDS: DOCUSATE SOD 100 MG CAPSULE PO (08:36)
--- NOTE | 2025-06-13 10:34 | ESPR_ITS ---
Subjective Subjective Interval history: Delivery type: Patient doing well this morning. No acute complaints. Ambulating, tolerating p.o., and voiding without difficulty. HTN/Pre-E screen negative: No CP, SOB, DODGE, visual changes, RUQ pain. : Yes Lochia: diminishing Bowel: Flatus + / BM + UOP: Voiding freely Exam Vital Signs Temp Pulse Resp BP Pulse Ox O2 Del Method 98.2 F 82 16 129/75 98 Room Air 06/13/25 08:03 06/13/25 08:03 06/13/25 08:03 06/13/25 08:03 06/13/25 08:03 06/13/25 08:03 Constitutional Constitutional: no acute distress Routine HEENT Exam Head: Present normocephalic and atraumatic Eye: Present EOMI and PERRL ENT: Present mucous membranes moist Routine Neck Exam Neck: Present supple and trachea midline Routine Respiratory Exam Respiratory: Present chest non-tender, lungs clear, normal breath sounds and no resp distress Routine Cardiovascular Exam Cardiovascular: Present RRR Routine Abdominal Exam Abdominal: Present soft and normoactive bowel sounds Routine Extremities Exam Extremities: Present full ROM Routine Skin Exam Skin: Present intact, dry and warm Routine Neurological Exam Neurological: Present alert, oriented X3 and CN II-XII intact Routine Psychiatric Exam Psychiatric: Present normal affect and normal thought process Objective Labs 06/13/25 04:10 06/10/25 09:50 Labs: Laboratory Results - last 24 hr 06/13/25 04:10 WBC 17.2 H D RBC 3.39 L Hgb 10.1 L D Hct 30.2 L MCV 89 MCH 29.8 MCHC 33.4 RDW Std Deviation 43.5 Plt Count 212 D Neut % (Auto) 75 Lymph % (Auto) 12 [place] % (Auto) 12 Eos % (Auto) 0 Baso % (Auto) 0 Neut # (Auto) 12.9 H Lymph # (Auto) 2.0 [place] # (Auto) 2.1 H Eos # (Auto) 0.0 Baso # (Auto) 0.0 Immature Gran # (Auto) 0.07 H Absolute Nucleated RBC 0.00 Immature Gran % 0 Nucleated RBC % 0 Assessment & Plan Problem List (1) Supervision of high risk , unspecified, third trimester: Status: Acute (2) Gestational hypertension: Status: Acute (3) Normal spontaneous vaginal delivery: Status: Acute Assessment and plan: 1. Continue routine /post-op care 2. Labs reviewed, cbc appropriate 3. Remove dressing/Garcia 4. Encourage to ambulate, shower 5. Encourage PO intake, breast feeding Time Spent With Patient Time: Total time spent is greater than 50% in coordination of care (as documented) at patient's floor/unit and/or counseling patient:
--- NOTE | 2025-06-13 11:07 | ESDS_ITS ---
DS: Providers Provider Date of admission: 06/10/25 09:17 Primary care physician: Physician No Primary/Family Admitting Provider: Mary Hernández MD Attending Provider on Admission: Braden Douglas MD Consults: 06/12/25 20:55 Referral Routine Comment: Attending Provider on DC: Braden Douglas MD Discharging Provider: Braden Douglas MD DS: Diagnosis Discharge Diagnosis (1) Normal spontaneous vaginal delivery: Status: Acute (2) Gestational hypertension: Status: Acute (3) Supervision of high risk , unspecified, third trimester: Status: Acute Problem List Completed Was Problem List Reviewed/Reconciled?: Yes Summary/Hosp Course Brief History: The patient is a 30-year-old G1, P0 at 39-2/7 weeks being induced for elevated blood pressures. Patient had epidural placed approximately an hour ago. She is on 7 milliunits/min of Pitocin and leonora about every 3 minutes. She is comfortable. Her is at bedside. Peripartum Data Delivery Method: Normal Vaginal Delivery Episiotomy Description: None Time Spent with Patient Time attestation: Total time spent providing and/or coordinating discharge services: Exam Vital Signs Temp Pulse Resp BP Pulse Ox O2 Del Method 98.2 F 82 16 129/75 98 Room Air 06/13/25 08:03 06/13/25 08:03 06/13/25 08:03 06/13/25 08:03 06/13/25 08:03 06/13/25 08:03 Discharge Plan Plan Patient Disposition: HOME (Self Care) Patient condition on transfer: Stable Prescriptions/Referrals Prescriptions/Med Rec: New docusate sodium [Stool Softener] 100 mg capsule 100 mg PO QDAY 30 Days Qty: 30 0RF ibuprofen 600 mg tablet 600 mg PO Q6H MDD 4 PRN (Reason: fever or pain) 10 Days Qty: 40 0RF Continued Alive Daily Support 180 mcg-25 mg- 25 mg tablet,chewable 1 tab PO QDAY ferrous sulfate [Feosol] 325 mg (65 mg iron) tablet 325 mg PO QDAY vit [id number]-GX no.15 [id number] xwf-bee-ah-mg capsule 1 cap PO QDAY Referrals: Braden Douglas MD [Physician, [facility]] No Primary/Family,Physician [Primary Care Provider] Patient/Caregiver Discharge Instructions Discharge Activity: activity as tolerated Education Materials: After a Vaginal , After Delivery Concerns, Breast Care After , Incision Care After Vaginal , Nutrition While , Understanding Depression, : Caring for Yourself, Feel Healthy After Print Language: Indonesian Stand Alone Forms: Ana Award Info., Patient Portal Info Letter Discharge Order Discharge Orders: Discharge (Routine); Ordered 06/13/25 Ordered By: Braden Douglas Planned Discharge Date 06/13/25 (2) Gestational hypertension Qualifiers: Trimester: third trimester Qualified Code(s): O13.3 - Gestational [- induced] hypertension without significant proteinuria, third trimester
[2025-06-13] MEDS: IBUPROFEN TAB 400 MG TABLET 800 MG PO (11:42)
[2025-06-13 11:45] VITALS: BP 136/82; PULSE 79; RESP 18; TEMP 36.7; O2SAT 98
[2025-06-13 15:47] VITALS: BP 128/81; PULSE 75; RESP 18; TEMP 36.7; O2SAT 99
[2025-06-13 20:00] VITALS: BP 125/81; PULSE 77; RESP 16; TEMP 36.5; O2SAT 97
== END 2025-06-13 20:43 | disposition home or self-care (01) | DRG 807 ==
LOC: S4SX 06-12 05:03 → S4NX 06-12 22:46
PROVIDERS: Obstetrics & Gynecology; Admitting Provider Obstetrics & Gynecology; Visit Provider Obstetrics & Gynecology
DX: O13.4 Gestational [pregnancy-induced] hypertension without significant proteinuria, complicating childbirth (principal); Z37.0 Single live birth; Z3A.39 39 weeks gestation of pregnancy; O70.1 Second degree perineal laceration during delivery; O69.81X0 Labor and delivery complicated by cord around neck, without compression, not applicable or unspecified
CPT/HCPCS: 36415; 59409; 76815; 80053; 81001; 82570; 84156; 84550; 85025; 85384; 85610; 85730; 86780; 86850; 86900; 86901; 87491; 87591; 87661; 94762; J0689; J1885; J2405; J2590; J2795; J3010; J3490; J7120; S0191; A9270